=== PATIENT | female | born 1970 | race Caucasian/White ===

== ENCOUNTER 2021-02-27 13:28 | Inpatient (IN) | payer OTHER ==
[2021-02-27 14:30] LABS: ALT 54 U/L (4-34); AST 132 U/L (14-36); African American GFR (CKD) >90 (>60 ml/min/1.73 sqM); Albumin 3.3 g/dL (3.5-5.0); Alkaline Phosphatase 117 U/L (38-126); Amylase 34 U/L (30-110); Anion Gap 8 mmol/L; Anisocytosis Slight; Basophils % (A) 1 %; Blood Urea Nitrogen 13 mg/dL (7-17); Calcium 8.8 mg/dL (8.4-10.2); Carbon Dioxide 32 mmol/L (22-30); Chloride 89 mmol/L (98-107); Eosinophils # (A) 0.2 k/uL (0-0.7); Eosinophils % (A) 3 %; Glucose 110 mg/dL (74-99); HCT 34.6 % (34.0-46.0); HGB 11.1 gm/dL (11.4-16.0); Lipase 70 U/L (23-300); Lymphocytes # (A) 1.2 k/uL (1.0-4.8); Lymphocytes % (A) 21 %; MCH 35.1 pg (25.0-35.0); MCHC 32.1 g/dL (31.0-37.0); Macrocytosis Marked; Mean Platelet Volume 8.2; Monocytes # (A) 0.5 k/uL (0-1.0); Monocytes % (A) 8 %; Neutrophils # (A) 3.8 k/uL (1.3-7.7); Neutrophils % (A) 66 %; Non-African American GFR(CKD) >90 (>60 ml/min/1.73 sqM); Platelet Count 117 k/uL (150-450); RBC 3.17 m/uL (3.80-5.40); RDW 18.3 % (11.5-15.5); Sodium 129 mmol/L (137-145); Total Bilirubin 7.8 mg/dL (0.2-1.3); WBC 5.7 k/uL (3.8-10.6)
[2021-02-27 15:22] LABS: Polychromasia Present; Target Cells Present
[2021-02-27] MEDS ORDERED: SODIUM CHLORIDE 0.9% 500 ML 500 ML IV STA (15:23)
--- NOTE | 2021-02-27 15:23 | ED ---
General Adult HPI - General Source: patient, RN notes reviewed Mode of arrival: ambulatory Limitations: no limitations - History of Present Illness -: days(s) (7) Location: abdomen Radiation: non-radiation Severity scale (1-10): 0 Associated Symptoms: loss of appetite, malaise, other (insomnia. constipation) Treatments Prior to Arrival: none <Claude Jones - Last Filed: 02/27/21 20:17> <Travis Guaman - Last Filed: 02/27/21 20:32> - General Chief complaint: Abdominal Pain Stated complaint: ABD pain Time Seen by Provider: 02/27/21 14:22 - History of Present Illness Initial comments: 50-year-old white female presents to the emergency room with complaints of constipation for one week, decreased appetite, fatigue and insomnia. Has been feeling full quickly after eating over the past 2 weeks. Also states has been unable to sleep at night only getting 4 hours, states mind is racing but doesn't know why. States has been feeling fatigued for the past 2 weeks also. Received her first covid vaccine last Saturday. Patient has lower leg 2+ pitting edema, states has had that since her gastric bypass in 2004. Patient also has a history of cholecystectomy in 2011. Patient states does not have a primary care doctor. Pt is a 1 pack per day smoker. Does not take any medication on a daily basis. Lives with her brother. No sick contacts. (Claude Jones) - Related Data Home Medications Medication Instructions Recorded Confirmed No Known Home Medications 02/27/21 02/27/21 Allergies Allergy/AdvReac Type Severity Reaction Status Date / Time No Known Allergies Allergy Verified 02/27/21 17:20 Review of Systems ROS Other: All systems not noted in ROS Statement are negative. <Claude Jones - Last Filed: 02/27/21 20:17> ROS Other: All systems not noted in ROS Statement are negative. <Travis Guaman - Last Filed: 02/27/21 20:32> ROS Statement: Those systems with pertinent positive or pertinent negative responses have been documented in the HPI. Past Medical History Past Medical History: Liver Disease History of Any Multi-Drug Resistant Organisms: None Reported Past Surgical History: Cholecystectomy, Hernia Repair Additional Past Surgical History / Comment(s): breast aug. Past Psychological History: No Psychological Hx Reported Smoking Status: Current every day smoker Past Alcohol Use History: Daily Past Drug Use History: None Reported <Claude Jones - Last Filed: 02/27/21 20:17> General Exam Limitations: no limitations General appearance: alert, in no apparent distress Head exam: Present: atraumatic, normocephalic, normal inspection Eye exam: Present: PERRL, EOMI, scleral icterus. Absent: conjunctival injection, periorbital swelling, periorbital tenderness Pupils: Present: normal accommodation ENT exam: Present: mucous membranes dry, other (black dry exudates to soft palate and oropharynx) Neck exam: Present: normal inspection, full ROM. Absent: tenderness, meningismus, lymphadenopathy, thyromegaly Respiratory exam: Present: normal lung sounds bilaterally. Absent: respiratory distress, wheezes, rales, rhonchi, stridor, chest wall tenderness Cardiovascular Exam: Present: regular rate, normal rhythm, normal heart sounds. Absent: systolic murmur, diastolic murmur, rubs, gallop, clicks GI/Abdominal exam: Present: soft, normal bowel sounds. Absent: distended, tenderness, guarding, rebound, rigid, mass, pulsatile mass Extremities exam: Present: full ROM, normal capillary refill, pedal edema (3+ pitting left lower extremity, 1+ right lower extremity). Absent: tenderness, calf tenderness Back exam: Present: normal inspection, full ROM. Absent: CVA tenderness (R), CVA tenderness (L) Neurological exam: Present: alert, oriented X3 Psychiatric exam: Present: normal affect, normal mood Skin exam: Present: warm, dry, intact, normal color. Absent: rash <Claude Jones - Last Filed: 02/27/21 20:17> Course Vital Signs 02/27/21 02/27/21 13:31 19:32 Temperature 97.6 F Pulse Rate 94 94 Respiratory 17 18 Rate Blood Pressure 118/71 120/70 O2 Sat by Pulse 99 95 Oximetry EKG Findings - EKG Results: EKG: sinus rhythm (Ventricular rate of 86, HI interval 0.18, QRS of 0.10, QTC of 0.533) <Claude Jones - Last Filed: 02/27/21 20:17> Medical Decision Making - Lab Data Result diagrams: 02/27/21 14:12 02/27/21 14:12 <Claude Jones - Last Filed: 02/27/21 20:17> - Lab Data Result diagrams: 02/27/21 14:12 02/27/21 14:12 <Travis Guaman - Last Filed: 02/27/21 20:32> - Medical Decision Making Hemoglobin and hematocrit is 11.1 / 34.6 respectively, WBC count is 5.7, potassium 3.0 which will be replaced with 40 of K-Dur po. total bili 7.8, AST 132, PLT 54. Sodium level of 129 patient given 1 L bolus with maintenance of 80 ml's an hour. Normal saline Chest x-ray shows no obstruction and no free air but a moderate amount of stool consistent with constipation. CT shows abdominal ascites consistent with hepatitis but no definitive liver mass there is some evidence of mild large bowel ileus. Patient will be admitted to Dr. Hess with GI consult. Case discussed with Dr. Guaman who is agreeable to this plan. (Claude Jones) The patient was seen and examined. All diagnostics were reviewed. It appears as though she does have hepatic failure. She also has significant fatigue and ascites. She states that she has not been able to eat much as well. She has a long history of alcohol abuse. She states that she normally drinks approximately 1 pint of alcohol per day but stopped approximately 3 weeks ago. She presents with scleral icterus. It appears as though her bilirubin is significantly elevated at 7.9. There are no old labs for comparison. The computed tomography scan of the abdomen and pelvis does show significant ascites as well as some increased attenuation of the liver potentially consistent with hepatitis. It is felt as though she would benefit from admission to the hospital for further treatment and GI consultation. Case is discussed with Dr. Darnell and he is agreeable with admission. (Travis Guaman) - Lab Data Lab Results 02/27/21 02/27/21 02/27/21 Range/Units 14:12 14:12 14:12 WBC 5.7 (3.8-10.6) k/uL RBC 3.17 L (3.80-5.40) m/uL Hgb 11.1 L (11.4-16.0) gm/dL Hct 34.6 (34.0-46.0) % MCV 109.0 H (80.0-100.0) fL MCH 35.1 H (25.0-35.0) pg MCHC 32.1 (31.0-37.0) g/dL RDW 18.3 H (11.5-15.5) % Plt Count 117 L (150-450) k/uL MPV 8.2 Neutrophils % 66 % Lymphocytes % 21 % Monocytes % 8 % Eosinophils % 3 % Basophils % 1 % Neutrophils # 3.8 (1.3-7.7) k/uL Lymphocytes # 1.2 (1.0-4.8) k/uL Monocytes # 0.5 (0-1.0) k/uL Eosinophils # 0.2 (0-0.7) k/uL Basophils # 0.0 (0-0.2) k/uL Manual Slide Review Performed Polychromasia Present Anisocytosis Slight Macrocytosis Marked A Target Cells Present PT 14.0 H (9.0-12.0) sec INR 1.4 H (<1.2) APTT 27.4 (22.0-30.0) sec Sodium 129 L (137-145) mmol/L Potassium 3.0 L (3.5-5.1) mmol/L Chloride 89 L (98-107) mmol/L Carbon Dioxide 32 H (22-30) mmol/L Anion Gap 8 mmol/L BUN 13 (7-17) mg/dL Creatinine 0.41 L (0.52-1.04) mg/dL Est GFR (CKD-EPI)AfAm >90 (>60 ml/min/1.73 sqM) Est GFR (CKD-EPI)NonAf >90 (>60 ml/min/1.73 sqM) Glucose 110 H (74-99) mg/dL Plasma Lactic Acid Tom (0.7-2.0) mmol/L Calcium 8.8 (8.4-10.2) mg/dL Total Bilirubin 7.8 H (0.2-1.3) mg/dL Conjugated Bilirubin 0.6 H (0.0-0.3) mg/dL Unconjugated Bilirubin 3.1 H (0.0-1.1) mg/dL Delta Bilirubin 4.1 H (0.0-0.2) mg/dL AST 132 H (14-36) U/L ALT 54 H (4-34) U/L Alkaline Phosphatase 117 (38-126) U/L Total Protein 8.0 (6.3-8.2) g/dL Albumin 3.3 L (3.5-5.0) g/dL Amylase 34 (30-110) U/L Lipase 70 (23-300) U/L 02/27/21 Range/Units 14:12 WBC (3.8-10.6) k/uL RBC (3.80-5.40) m/uL Hgb (11.4-16.0) gm/dL Hct (34.0-46.0) % MCV (80.0-100.0) fL MCH (25.0-35.0) pg MCHC (31.0-37.0) g/dL RDW (11.5-15.5) % Plt Count (150-450) k/uL MPV Neutrophils % % Lymphocytes % % Monocytes % % Eosinophils % % Basophils % % Neutrophils # (1.3-7.7) k/uL Lymphocytes # (1.0-4.8) k/uL Monocytes # (0-1.0) k/uL Eosinophils # (0-0.7) k/uL Basophils # (0-0.2) k/uL Manual Slide Review Polychromasia Anisocytosis Macrocytosis Target Cells PT (9.0-12.0) sec INR (<1.2) APTT (22.0-30.0) sec Sodium (137-145) mmol/L Potassium (3.5-5.1) mmol/L Chloride (98-107) mmol/L Carbon Dioxide (22-30) mmol/L Anion Gap mmol/L BUN (7-17) mg/dL Creatinine (0.52-1.04) mg/dL Est GFR (CKD-EPI)AfAm (>60 ml/min/1.73 sqM) Est GFR (CKD-EPI)NonAf (>60 ml/min/1.73 sqM) Glucose (74-99) mg/dL Plasma Lactic Acid Tom 1.2 (0.7-2.0) mmol/L Calcium (8.4-10.2) mg/dL Total Bilirubin (0.2-1.3) mg/dL Conjugated Bilirubin (0.0-0.3) mg/dL Unconjugated Bilirubin (0.0-1.1) mg/dL Delta Bilirubin (0.0-0.2) mg/dL AST (14-36) U/L ALT (4-34) U/L Alkaline Phosphatase (38-126) U/L Total Protein (6.3-8.2) g/dL Albumin (3.5-5.0) g/dL Amylase (30-110) U/L Lipase (23-300) U/L Disposition Is patient prescribed a controlled substance at d/c from ED?: No Decision Date: 02/27/21 Decision Time: 20:13 <Claude Jones - Last Filed: 02/27/21 20:17> <Travis Guaman - Last Filed: 02/27/21 20:32> Clinical Impression: Hepatitis, Ascites, Anemia, Hepatic failure, Fatigue, Hypokalemia, Abdominal pain Disposition: ADMITTED IP TO THIS HOSP Condition: Fair Referrals: None,Stated [Primary Care Provider] - 1-2 days
[2021-02-27 16:15] LABS: INR 1.4 (<1.2); Partial Thromboplastin Time 27.4 sec (22.0-30.0)
--- NOTE | 2021-02-27 16:33 | XR ---
EXAMINATION TYPE: XR KUB DATE OF EXAM: 02/27/2021 Comparison: None Clinical History: 50-year-old female abdominal pain Findings: Lung bases are clear. No evidence for free intraperitoneal air. Moderate stool burden. Nonobstructive bowel gas pattern. No suspicious calcifications are identified. Air and stool extends throughout the colon distally to the rectum. Impression: No evidence for free air or bowel obstruction. Moderate stool burden may reflect constipation.
[2021-02-27] MEDS ORDERED: POTASSIUM CHLORIDE ER 20 MEQ TAB.ER PO STA (16:50)
[2021-02-27] MEDS ORDERED: MAGNESIUM CITRATE 296 ML BOTTLE PO ONE (17:16)
[2021-02-27 17:31] LABS: Bilirubin, Conjugated 0.6 mg/dL (0.0-0.3); Bilirubin, Delta 4.1 mg/dL (0.0-0.2); Bilirubin,Unconjugated 3.1 mg/dL (0.0-1.1)
[2021-02-27] MEDS: SODIUM CHLORIDE 0.9% 1,000 ML IV SCH (17:48)
--- NOTE | 2021-02-27 19:21 | CT ---
EXAMINATION TYPE: CT abdomen pelvis w con DATE OF EXAM: 02/27/2021 COMPARISON: None HISTORY: Constipation, abdominal pain, elevated LFT, jaundice. CT DLP: 1311 mGycm Automated exposure control for dose reduction was used. CONTRAST: Performed with IV Contrast, patient injected with 100 mL of Isovue 300. Images obtained from the diaphragm to the floor the pelvis with IV contrast. Lung bases are clear of consolidation. There is no pleural effusion. Heart size is normal. There is low-density abdominal ascites fluid. There is hypodensity in the liver consistent with some fatty infiltration. I see no definite discrete liver mass. Spleen is intact. There is no pancreatic m ass. There is surgical clips at the gastric fundus. There is absent gallbladder. There is no adrenal mass. Kidneys show satisfactory contrast opacification. There is no hydronephrosi s. Ureters are not dilated. Uterus is anteverted. Urinary bladder not well evaluated. There is no delmar dence of a pelvic mass. Lumbar vertebra have normal alignment. There is T12 loss of height of 25% pro bably due to osteoporosis. This appears chronic. The bony pelvis is intact. The hip joints appear int act. There is previous surgery of the small bowel in the left mid abdomen. I do not see a definite bowel o bstruction. There is some fluid levels of May the descending colon and could relate to some mild ileu s. There is fecal material and fluid in the rectum. IMPRESSION: Abdominal ascites. Heterogeneity in the liver consistent with hepatitis. No definite liver mass. Ther e is evidence for some mild large bowel ileus.
[2021-02-27] MEDS ORDERED: NALOXONE 0.4 MG/ML 1 ML VIAL IV PRN (20:14)
[2021-02-27] MEDS ORDERED: SODIUM CHLORIDE 0.9% 1,000 ML IV SCH (20:15)
[2021-02-27] MEDS: ZOLPIDEM 5 MG TAB PO SCH (23:13)
[2021-02-27] MEDS: THIAMINE 100 MG/ML 2 ML VIAL IVP SCH (23:54)
[2021-02-28 07:29] LABS: Anisocytosis Slight; Basophils # (A) 0.1 k/uL (0-0.2); Basophils % (A) 1 %; Eosinophils # (A) 0.2 k/uL (0-0.7); Eosinophils % (A) 4 %; HCT 28.8 % (34.0-46.0); Lymphocytes # (A) 1.4 k/uL (1.0-4.8); Lymphocytes % (A) 22 %; MCH 36.6 pg (25.0-35.0); MCHC 34.8 g/dL (31.0-37.0); MCV 105.2 fL (80.0-100.0); Macrocytosis Marked; Mean Platelet Volume 8.2; Monocytes # (A) 0.5 k/uL (0-1.0); Monocytes % (A) 8 %; Neutrophils # (A) 4.1 k/uL (1.3-7.7); Platelet Count 103 k/uL (150-450); RBC 2.74 m/uL (3.80-5.40); RDW 17.6 % (11.5-15.5); WBC 6.4 k/uL (3.8-10.6)
[2021-02-28] MEDS: PANTOPRAZOLE 40 MG/10 ML VIAL IVP SCH (08:14)
[2021-02-28] MEDS: HEPARIN SODIUM,PORCINE/PF 5,000 UNIT/0.5 ML SYRINGE SQ SCH ×2 (08:18→22:03)
[2021-02-28] MEDS: THIAMINE 100 MG/ML 2 ML VIAL IVP SCH (08:19)
[2021-02-28] MEDS: SODIUM CHLORIDE 0.9% 1,000 ML IV SCH ×2 (08:20→20:11)
--- NOTE | 2021-02-28 09:57 | US ---
EXAMINATION TYPE: US abdomen limited DATE OF EXAM: 02/28/2021 COMPARISON: CT 02/27/2021 CLINICAL HISTORY: 50-year-old female assess for fluid pocket please. Technique: All four quadrants were scanned. FINDINGS: There is small amount of free fluid in all four quadrants. IMPRESSION: Only mild abdominal ascites throughout the abdomen. Not enough for therapeutic paracentesis.
[2021-02-28] MEDS: LACTULOSE 20 GM/30 ML CUP PO SCH ×3 (09:58→22:03)
[2021-02-28 10:14] LABS: ALT 51 U/L (4-34); AST 133 U/L (14-36); African American GFR (CKD) >90 (>60 ml/min/1.73 sqM); Albumin 2.9 g/dL (3.5-5.0); Albumin/Globulin Ratio 0.7; Alkaline Phosphatase 94 U/L (38-126); Anion Gap 7 mmol/L; Blood Urea Nitrogen 12 mg/dL (7-17); Carbon Dioxide 28 mmol/L (22-30); Chloride 95 mmol/L (98-107); Globulin 4.3 g/dL; Glucose 90 mg/dL (74-99); Non-African American GFR(CKD) >90 (>60 ml/min/1.73 sqM); Potassium 3.4 mmol/L (3.5-5.1); Sodium 130 mmol/L (137-145); Total Protein 7.2 g/dL (6.3-8.2)
[2021-02-28 13:32] LABS: Basophils # (M) 0.06 k/uL (0-0.2); Eosinophils # (M) 0.13 k/uL (0-0.7); Lymphocytes # (M) 0.51 k/uL (1.0-4.8); Monocytes # (M) 0.26 k/uL (0-1.0); Neutrophils # (M) 5.44 k/uL (1.3-7.7); Neutrophils % (M) 85 %; Nucleated Red Blood Cells 0 /100 WBC (0-0); Total Cells Counted 100
[2021-02-28 13:33] LABS: Poikilocytosis (M) Present; Polychromasia Present; Target Cells Present
[2021-02-28 14:23] LABS: African American GFR (CKD) 138.8 (60.0-200.0); Albumin 2.9 g/dL (3.80-4.90); Albumin/Globulin Ratio 0.78 (1.60-3.17); Anion Gap 12.4 mmol/L (4.00-12.00); Bilirubin, Conjugated 5.2 mg/dL (0.20-0.40); Bilirubin,Unconjugated 1.8 mg/dL; Calcium 8.2 mg/dL (8.7-10.3); Carbon Dioxide 23.6 mmol/L (21.6-31.8); Globulin 3.7 g/dL (1.6-3.3); Magnesium 2.5 mg/dL (1.5-2.4); Non-African American GFR(CKD) 119.8 (60.0-200.0); Potassium 3.3 mmol/L (3.5-5.5); Total Protein 6.6 g/dL (6.2-8.2)
--- NOTE | 2021-02-28 16:40 | CONS ---
CONSULTATION DATE OF DICTATION: February 28, 2021. REASON FOR CONSULTATION: Altered mental status and elevated LFTs. HISTORY OF PRESENT ILLNESS: The patient is a 50-year-old pleasant white female with history of heavy alcohol use, admitted to the emergency room with abdominal discomfort, decreased appetite, not feeling well for the last 2 weeks duration. In the ER she was noted to have jaundice and elevated LFTs and hence we are consulted in regards to this issue. The patient is quite sleepy during the entire interview. She, however, stated that she has been drinking heavily for several years and she quit drinking about 3 weeks ago. She started having some abdominal distention, mostly in the epigastric area associated with some nausea, vomiting, and was not feeling well. In the ER she was noted to have a bilirubin that was 7.8 with AST and ALT at 132 and 54 respectively and normal alkaline phosphatase. Coronavirus PCR was negative. She had a CT of the abdomen and pelvis done in the emergency room that showed mild amount of abdominal ascites and heterogeneity in the liver consistent with hepatitis. PAST MEDICAL HISTORY: Significant for alcohol abuse. MEDICATIONS: Medications at home are none. ALLERGIES: No known drug allergies. SOCIAL HISTORY: Chronic smoker. Heavy alcohol abuse, quit drinking about 3 weeks ago. FAMILY HISTORY: Unremarkable. PAST SURGICAL HISTORY: Cholecystectomy and hernia repair. REVIEW OF SYSTEMS: CARDIOPULMONARY: No chest pain or shortness of breath. GENITOURINARY: No dysuria or hematuria. MUSCULOSKELETAL: Unremarkable. SKIN: Unremarkable. ENDOCRINE: Unremarkable. PSYCHIATRIC: Unremarkable. NEUROLOGY: Slightly confused and more lethargic. ENT/VISION: Unremarkable. CONSTITUTIONAL: She denies any weight loss. No fever, chills, night sweats. PHYSICAL EXAMINATION: She appears comfortable. Vital signs are stable. Blood pressure is 108/65, pulse 85, temperature 97.8. HEENT EXAMINATION: Unremarkable. Conjunctivae pink. Sclerae deeply icteric. Oral cavity, no lesions. NECK: No JVD or lymph node enlargement. CHEST: Was clear to auscultation. HEART: Regular rate and rhythm. ABDOMEN: Soft. There was mild tenderness in the right upper quadrant area. Liver and spleen were not palpable. Shifting dullness not present. EXTREMITIES: 2+ pedal edema on the left side. NEUROLOGIC: Alert, oriented to name and place, but not to time. LABS: Labs from yesterday WBC 5.7, hemoglobin 11.1, MCV 109, platelets 117. INR 1.4. BUN is 13, creatinine 0.41. T bilirubin 7.8, AST 132, ALT 54, alkaline phosphatase 117. Coronavirus PCR is negative. Serum alcohol less than 10. Today bilirubin is 6, AST 133, ALT 51, alkaline phosphatase is 94. Hemoglobin is 10.8. Ammonia level is 77. IMPRESSION: 1. Altered mental status and elevated ammonia level secondary to hepatic encephalopathy. 2. Elevated LFTs and jaundice all consistent with alcoholic liver disease, possibly superimposed on underlying cirrhosis of the liver. 3. Abdominal pain, abdominal distention. Ultrasound and CT scan showed mild amount of ascites. 4. Macrocytic anemia and thrombocytopenia secondary to underlying chronic liver disease. RECOMMENDATIONS: 1. Start on oral lactulose 30 mL 3 times daily and titrate so that she has 3-4 bowel movements daily. 2. Start on Xifaxan 550 mg twice daily. 3. Monitor ammonia level daily. 4. Abstinence from alcohol. 5. Start her on diuretics with Lasix 40 mg daily and Aldactone 50 mg daily. 6. Once her mentation improves, we can start her on a low-salt diet. 7. Will follow with you closely. 8. Thank you for this consultation. MMODL / IJN: [id number] /
[2021-02-28] MEDS: FUROSEMIDE 40 MG TAB PO SCH (16:52)
[2021-02-28] MEDS: SPIRONOLACTONE 25 MG TAB PO SCH (16:52)
[2021-02-28 17:38] LABS: Appearance,Urine Clear (Clear); Bilirubin,Urine 1+ (Negative); Blood,Urine Negative (Negative); Color,Urine Dark Yellow; Glucose,Urine (UA) Negative (Negative); Ketones,Urine Trace (Negative); Leukocyte Esterase,Urine Negative (Negative); Nitrite,Urine Negative (Negative); Protein,Urine Trace (Negative); Specific Gravity,Urine 1.036 (1.001-1.035)
[2021-02-28 18:05] LABS: Hepatitis A Antibody IgM Non-Reactive (Non-Reactive); Hepatitis B Core IgM Non-Reactive (Non-Reactive); Hepatitis B Surface Antigen Non-Reactive (Non-Reactive); Hepatitis C IgG Antibody Non-Reactive (Non-Reactive)
--- NOTE | 2021-02-28 19:57 | P.HPIM ---
History of Present Illness H&P Date: 02/28/21 Chief Complaint: Abdominal distention Patient is a 50-year-old female with a known history of liver cirrhosis related to EtOH abuse, currently everyday smoker and history of gastric bypass in 2004 and cholecystectomy in 2011 presents to ER with complaints of abdominal disten tion for the past 2 weeks, patient is also complaining of generalized weakness fatigue, insomnia and constipation for the past 1 week. Patient is also having lower extremity swelling bilaterally. Denied any fever or chills. No complaints of chest pain or shortness breath. Patient does have nausea and episodes of vomiting. Patient states that she took her first cold vaccine on 02/22/2021 KUB x-ray showed no evidence of free air or bowel obstruction. Moderate stool burden may reflect constipation. CT of the abdomen pelvis was done which showed abdominal ascites. Heterogeneously in the liver consistent with hepatitis. No definite liver mass. There is evidence of some mild large bowel ileus. Laboratory data showed WBC 6.4, hemoglobin 10.0, MCV 119 and platelets 117, ammonia level 77 INR 1.4, sodium 129 potassium 3.0 chloride 89 bicarb 32 BUN 13 and creatinine 0.41 bilirubin is 7.8, AST 132 ALT 54 albumin 3.3 serum alcohol less than 10 COVID-19 PCR not detected Hepatitis panel is nonreactive Review of Systems Constitutional: Patient denies any fever or chills . + generalized weakness and fatigue. no weight loss. Abdomen: Patient does complain of nausea and no source of vomiting. Abdominal distention and constipation present. No diarrhea.. Cardiovascular: Patient denies any chest pain or short of breath no palpitations. Respiratory: patient denied any cough or sputum production. No shortness of breath Complete review of systems could not be obtained from the patient at this time. Past Medical History Past Medical History: Liver Disease Additional Past Medical History / Comment(s): liver cirrohosis r/t etoh in past History of Any Multi-Drug Resistant Organisms: None Reported Past Surgical History: Cholecystectomy, Hernia Repair Additional Past Surgical History / Comment(s): breast aug., gastric bypass Past Anesthesia/Blood Transfusion Reactions: No Reported Reaction Past Psychological History: No Psychological Hx Reported Smoking Status: Current every day smoker Past Alcohol Use History: Daily Past Drug Use History: None Reported Medications and Allergies Home Medications Medication Instructions Recorded Confirmed Type No Known Home Medications 02/27/21 02/27/21 History Allergies Allergy/AdvReac Type Severity Reaction Status Date / Time No Known Allergies Allergy Verified 02/27/21 17:20 Physical Exam Vitals: Vital Signs Temp Pulse Pulse Resp BP BP Pulse Ox 02/28/21 05:00 98.6 F 103 H 16 108/61 90 L 02/27/21 22:51 97.4 F L 87 14 134/79 98 02/27/21 21:00 84 16 114/62 95 02/27/21 20:00 93 16 114/67 95 02/27/21 19:32 94 18 120/70 95 02/27/21 13:31 97.6 F 94 17 118/71 99 Intake and Output 02/27/21 02/28/21 02/28/21 22:59 06:59 14:59 Intake Total 740 Balance 740 Intake: Intake, IV Titration 640 Amount Sodium Chloride 0.9% 1, 640 000 ml @ 80 mls/hr IV . [id number] [facility] Rx#:[id number] Oral 100 Other: Voiding Method Toilet # Voids 1 # Bowel Movements 1 1 Weight 82 kg PHYSICAL EXAMINATION: Patient is lying in the bed comfortably, no acute distress, awake alert and oriented. lethargic and drowsy. HEENT: Normocephalic. Neck is supple. Pupils reactive. Nostrils clear. Oral cavity is moist. Ears reveal no drainage. Neck reveals no JVD, carotid bruits, or thyromegaly. CHEST EXAMINATION: Trachea is central. Symmetrical expansion. Lung vides clear to auscultation and percussion. CARDIAC: Normal S1, S2 with no gallops. No murmurs ABDOMEN: Soft. distended, no gurading, Bowel sounds present , No organomegaly. No abdominal bruits. Extremities: 2+ pedal edema. No clubbing or cyanosis Neurologically awake, alert, oriented x3 with well-coordinated movements. No focal deficits noted Skin: No rash or skin lesions. Psychiatric: Coperative. Musculoskeletal: No joint swelling or deformity. Normal range of motion. Results CBC & Chem 7: 02/28/21 05:55 02/28/21 08:49 Labs: Abnormal Lab Results - Last 24 Hours (Table) 02/27/21 02/27/21 02/27/21 Range/Units 14:12 14:12 14:12 RBC 3.17 L (3.80-5.40) m/uL Hgb 11.1 L (11.4-16.0) gm/dL Hct (34.0-46.0) % MCV 109.0 H (80.0-100.0) fL MCH 35.1 H (25.0-35.0) pg RDW 18.3 H (11.5-15.5) % Plt Count 117 L (150-450) k/uL Macrocytosis Marked A PT 14.0 H (9.0-12.0) sec INR 1.4 H (<1.2) Sodium 129 L (137-145) mmol/L Potassium 3.0 L (3.5-5.1) mmol/L Chloride 89 L (98-107) mmol/L Carbon Dioxide 32 H (22-30) mmol/L Creatinine 0.41 L (0.52-1.04) mg/dL Glucose 110 H (74-99) mg/dL Total Bilirubin 7.8 H (0.2-1.3) mg/dL Conjugated Bilirubin 0.6 H (0.0-0.3) mg/dL Unconjugated Bilirubin 3.1 H (0.0-1.1) mg/dL Delta Bilirubin 4.1 H (0.0-0.2) mg/dL AST 132 H (14-36) U/L ALT 54 H (4-34) U/L Ammonia (<30) umol/L Albumin 3.3 L (3.5-5.0) g/dL 02/28/21 02/28/21 Range/Units 05:55 08:49 RBC 2.74 L (3.80-5.40) m/uL Hgb 10.0 L (11.4-16.0) gm/dL Hct 28.8 L (34.0-46.0) % MCV 105.2 H (80.0-100.0) fL MCH 36.6 H (25.0-35.0) pg RDW 17.6 H (11.5-15.5) % Plt Count 103 L (150-450) k/uL Macrocytosis Marked A PT (9.0-12.0) sec INR (<1.2) Sodium (137-145) mmol/L Potassium (3.5-5.1) mmol/L Chloride (98-107) mmol/L Carbon Dioxide (22-30) mmol/L Creatinine (0.52-1.04) mg/dL Glucose (74-99) mg/dL Total Bilirubin (0.2-1.3) mg/dL Conjugated Bilirubin (0.0-0.3) mg/dL Unconjugated Bilirubin (0.0-1.1) mg/dL Delta Bilirubin (0.0-0.2) mg/dL AST (14-36) U/L ALT (4-34) U/L Ammonia 77 H (<30) umol/L Albumin (3.5-5.0) g/dL Thrombosis Risk Factor Assmnt - DVT/VTE Prophylaxis DVT/VTE Prophylaxis: Pharmacologic Prophylaxis ordered - Choose All That Apply Any of the Below Risk Factors Present?: Yes Each Factor Represents 1 point: Age 41-60 years, Obesity (BMI >25), or Other Risk Factors: No Other congenital or acquired thrombophilia - If yes, enter type in comment: No Thrombosis Risk Factor Assessment Total Risk Factor Score: 3 Thrombosis Risk Factor Assessment Level: Moderate Risk Assessment and Plan Assessment: Altered mental status secondary to hepatic encephalopathy with ammonia level 77 Elevated liver enzymes AST greater than ALT consistent with alcoholic hepatitis and fatty infiltration of the liver Possible underlying liver cirrhosis Mild ascites as per ultrasound of the abdomen Constipation with mild large bowel ileus Macrocytosis, thrombocytopenia and coagulopathy due to liver disease Hyperbilirubinemia History of alcohol abuse Hypokalemia Hypervolemic hyponatremia DVT prophylaxis with heparin subcu Plan: Patient will be continued on lactulose and was given gentle IV hydration. Patient was started on rifaximin and Lasix, spironolactone. Patient was given mag citrate while in the ER and did have a bowel movement. Replace electrolytes and follow-up ammonia level. GI is on board and further recommendations based on the clinical course. Prognosis guarded at this time. Time with Patient: Greater than 30
[2021-02-28] MEDS: RIFAXIMIN 550 MG TABLET PO SCH (22:03)
[2021-03-01] MEDS: ZOLPIDEM 5 MG TAB PO SCH ×2 (01:06→20:46)
[2021-03-01 07:22] LABS: Anisocytosis Slight; Basophils # (A) 0.1 k/uL (0-0.2); Basophils % (A) 1 %; Eosinophils # (A) 0.3 k/uL (0-0.7); Eosinophils % (A) 5 %; HCT 32.3 % (34.0-46.0); HGB 10.5 gm/dL (11.4-16.0); Lymphocytes # (A) 1.6 k/uL (1.0-4.8); Lymphocytes % (A) 26 %; MCH 35.5 pg (25.0-35.0); MCHC 32.5 g/dL (31.0-37.0); MCV 109.1 fL (80.0-100.0); Macrocytosis Marked; Mean Platelet Volume 8.3; Monocytes # (A) 0.5 k/uL (0-1.0); Monocytes % (A) 8 %; Neutrophils # (A) 3.4 k/uL (1.3-7.7); Neutrophils % (A) 58 %; Platelet Count 110 k/uL (150-450); RBC 2.96 m/uL (3.80-5.40); RDW 18.2 % (11.5-15.5); WBC 5.9 k/uL (3.8-10.6)
[2021-03-01] MEDS: SODIUM CHLORIDE 0.9% 1,000 ML IV SCH (08:44)
[2021-03-01] MEDS: FUROSEMIDE 40 MG TAB PO SCH (08:45)
[2021-03-01] MEDS: HEPARIN SODIUM,PORCINE/PF 5,000 UNIT/0.5 ML SYRINGE SQ SCH ×2 (08:45→20:46)
[2021-03-01] MEDS: LACTULOSE 20 GM/30 ML CUP PO SCH ×2 (08:46→20:45)
[2021-03-01] MEDS: RIFAXIMIN 550 MG TABLET PO SCH ×2 (08:46→20:46)
[2021-03-01] MEDS: PANTOPRAZOLE 40 MG/10 ML VIAL IVP SCH (08:46)
[2021-03-01] MEDS: SPIRONOLACTONE 25 MG TAB PO SCH (08:46)
[2021-03-01] MEDS: THIAMINE 100 MG/ML 2 ML VIAL IVP SCH (08:46)
[2021-03-01 12:56] LABS: Albumin 2.9 g/dL (3.80-4.90); Albumin/Globulin Ratio 0.76 (1.60-3.17); Anion Gap 8.1 mmol/L (4.00-12.00); Calcium 8.2 mg/dL (8.7-10.3); Carbon Dioxide 27.9 mmol/L (21.6-31.8); Globulin 3.8 g/dL (1.6-3.3); Non-African American GFR(CKD) 111.3 (60.0-200.0); Potassium 2.8 mmol/L (3.5-5.5); Total Bilirubin 6.2 mg/dL (0.3-1.2); Total Protein 6.7 g/dL (6.2-8.2)
--- NOTE | 2021-03-01 14:31 | P.PN ---
Subjective Progress Note Date: 03/01/21 Principal diagnosis: Altered mental status changes, elevated LFTs This is a 50-year-old white female with a history of heavy alcohol abuse who is admitted to the emergency room with abdominal discomfort, decreased appetite, not feeling well for last 2 weeks duration. While in the emergency room was noted to be severely jaundiced with elevated LFTs. Today the patient is more alert and is able to answer a few more questions. She states she has been a heavy drinker for likely greater than 20 years. She states she stopped drinking 3 weeks ago. She states she was told in the past that she has had liver disease from her drinking. She is aware she is in the hospital, the year, and states that she lives with her brother. She states her abdominal discomfort has improved today, she denies any nausea, or vomiting. Objective - Vital Signs Vital signs: Vital Signs Temp 97.9 F 03/01/21 11:15 Pulse 87 03/01/21 11:15 Resp 14 03/01/21 11:15 BP 124/75 03/01/21 11:15 Pulse Ox 96 03/01/21 11:15 Intake & Output 02/28/21 03/01/21 03/01/21 18:59 06:59 18:59 Intake Total 960 960 Output Total 340 Balance 620 960 Intake: Intake, IV Titration 960 960 Amount Sodium Chloride 0.9% 1, 960 960 000 ml @ 80 mls/hr IV . [id number] [facility] Rx#:[id number] Output: Urine 340 Straight 340 Other: Voiding Method Toilet Bedpan Bedpan # Voids 3 1 # Bowel Movements 1 5 - Exam General appearance: The patient is alert, oriented, appears in no acute distress. HET: Head is normocephalic and atraumatic. Conjunctiva pink. Sclera anicteric. Neck: Supple without lymphadenopathy. Abdomen: Soft, nontender, nondistended with bowel sounds. No guarding or rigidity. Extremities: Normal skin color and turgor. No pedal edema Skin: No rashes, no jaundice Neurological: No focal deficits. Alert and oriented 3. - Labs CBC & Chem 7: 03/01/21 06:31 03/01/21 06:31 Labs: Abnormal Lab Results - Last 24 Hours (Table) 02/28/21 02/28/21 03/01/21 Range/Units 05:55 17:23 06:31 RBC 2.96 L (3.80-5.40) m/uL Hgb 10.5 L (11.4-16.0) gm/dL Hct 32.3 L (34.0-46.0) % MCV 109.1 H (80.0-100.0) fL MCH 35.5 H (25.0-35.0) pg RDW 18.2 H (11.5-15.5) % Plt Count 110 L (150-450) k/uL Macrocytosis Marked A Sodium 131 L (135-145) mmol/L Potassium 3.3 L (3.5-5.5) mmol/L Chloride 95 L (96-109) mmol/L Anion Gap 12.40 H (4.00-12.00) mmol/L BUN (9.0-27.0) mg/dL Creatinine 0.4 L (0.6-1.5) mg/dL BUN/Creatinine Ratio 30.00 H (12.00-20.00) Ratio Glucose 123 H (70-110) mg/dL Calcium 8.2 L (8.7-10.3) mg/dL Magnesium 2.5 H (1.5-2.4) mg/dL Total Bilirubin 7.0 H (0.3-1.2) mg/dL Conjugated Bilirubin 5.20 H (0.20-0.40) mg/dL AST 120 H (13-35) U/L ALT 50 H (8-44) U/L Albumin 2.90 L (3.80-4.90) g/dL Globulin 3.7 H (1.6-3.3) g/dL Albumin/Globulin Ratio 0.78 L (1.60-3.17) g/dL Ur Specific Energy 1.036 H (1.001-1.035) Urine Protein Trace H (Negative) Urine Ketones Trace H (Negative) Urine Bilirubin 1+ H (Negative) 03/01/21 Range/Units 06:31 RBC (3.80-5.40) m/uL Hgb (11.4-16.0) gm/dL Hct (34.0-46.0) % MCV (80.0-100.0) fL MCH (25.0-35.0) pg RDW (11.5-15.5) % Plt Count (150-450) k/uL Macrocytosis Sodium 134 L (135-145) mmol/L Potassium 2.8 L (3.5-5.5) mmol/L Chloride (96-109) mmol/L Anion Gap (4.00-12.00) mmol/L BUN 8.0 L (9.0-27.0) mg/dL Creatinine 0.5 L (0.6-1.5) mg/dL BUN/Creatinine Ratio (12.00-20.00) Ratio Glucose (70-110) mg/dL Calcium 8.2 L (8.7-10.3) mg/dL Magnesium (1.5-2.4) mg/dL Total Bilirubin 6.2 H (0.3-1.2) mg/dL Conjugated Bilirubin (0.20-0.40) mg/dL AST 110 H (13-35) U/L ALT 49 H (8-44) U/L Albumin 2.90 L (3.80-4.90) g/dL Globulin 3.8 H (1.6-3.3) g/dL Albumin/Globulin Ratio 0.76 L (1.60-3.17) g/dL Ur Specific Energy (1.001-1.035) Urine Protein (Negative) Urine Ketones (Negative) Urine Bilirubin (Negative) Assessment and Plan (1) Hepatic encephalopathy Narrative/Plan: Patient with altered mental status and elevated ammonia level secondary to hepatic encephalopathy Current Visit: Yes Status: Acute Code(s): K72.90 - HEPATIC FAILURE, UNSPECIFIED WITHOUT COMA SNOMED Code(s): 15651295 (2) Jaundice Narrative/Plan: With elevated LFTs and jaundice CONSISTENT WITH ALCOHOLIC LIVER DISEASE, POSSIBLY SUPERIMPOSED ON UNDERLYING CIRRHOSIS OF THE LIVER Current Visit: Yes Status: Acute Code(s): R17 - UNSPECIFIED JAUNDICE SNOMED Code(s): 41898619 (3) Elevated liver function tests Current Visit: Yes Status: Acute Code(s): R79.89 - OTHER SPECIFIED ABNORMAL FINDINGS OF BLOOD CHEMISTRY SNOMED Code(s): 002134613 (4) Abdominal pain Narrative/Plan: Abdominal pain and distention. Ultrasound and computed tomography scan showed mild amount of ascites. Also has moderate amount of stool burden. Current Visit: Yes Status: Acute Code(s): R10.9 - UNSPECIFIED ABDOMINAL PAIN SNOMED Code(s): 92865721 (5) Macrocytic anemia Narrative/Plan: Extracystic anemia and thrombocytopenia secondary to underlying chronic liver disease Current Visit: Yes Status: Acute Code(s): D53.9 - NUTRITIONAL ANEMIA, UNSPECIFIED SNOMED Code(s): 51880120 Plan: 1. Continue oral lactulose 30 g 3 times daily titrate to have 3-4 bowel movements daily 2. Continue Xifaxan 550 mg twice daily 3. Monitor ammonia level daily 4. Alcohol abstinence 5. Continue diuretics with Lasix 40 mg daily and Aldactone 50 mg daily Thank you for this consultation, we will follow with you closely Dr. Seferino Win I agree with the dictator's note, documented as a scribe by Venus Reed.
[2021-03-01] MEDS ORDERED: Potassium Replacement Protocol 1 EACH MISC MISCELLANE PRN (15:59)
--- NOTE | 2021-03-01 16:10 | P.PN ---
Subjective Progress Note Date: 03/01/21 Chief Complaint: Abdominal distention Patient is a 50-year-old female with a known history of liver cirrhosis related to EtOH abuse, currently everyday smoker and history of gastric bypass in 2004 and cholecystectomy in 2011 presents to ER with complaints of abdominal distention for the past 2 weeks, patient is also complaining of generalized weakness fatigue, insomnia and constipation for the past 1 week. Patient is also having lower extremity swelling bilaterally. Denied any fever or chills. No complaints of chest pain or shortness breath. Patient does have nausea and episodes of vomiting. Patient states that she took her first covid vaccine on 02/22/2021 [facility] x-ray showed no evidence of free air or bowel obstruction. Moderate stool burden may reflect constipation. CT of the abdomen pelvis was done which showed abdominal ascites. Heterogeneously in the liver consistent with hepatitis. No definite liver mass. There is evidence of some mild large bowel ileus. Laboratory data showed WBC 6.4, hemoglobin 10.0, MCV 119 and platelets 117, ammonia level 77 INR 1.4, sodium 129 potassium 3.0 chloride 89 bicarb 32 BUN 13 and creatinine 0.41 bilirubin is 7.8, AST 132 ALT 54 albumin 3.3 serum alcohol less than 10 COVID-19 PCR not detected Hepatitis panel is nonreactive 03/01/2021 Patient is seen and evaluated and follow-up continues to be lethargic although arousable. Patient's ammonia level is 6.7 today and liver functions trending down. Sodium is 134 and potassium is 2.8 and will replace per protocol. Other labs within normal limits. GI is following and patient is maintained on Lasix and Aldactone and will continue. Abdominal discomfort slightly improved today although intermittently causing discomfort. Patient to continue with lactulose 30 g twice daily and continue to monitor for at least 3 bowel movements daily. Will have PT/OT evaluate the patient as she continues to be weak and lethargic. Reports of chest pain or shortness of breath noted. Patient is afebrile. No Reports of nausea or vomiting noted. Objective - Vital Signs Vital signs: Vital Signs Temp 98.2 F 03/01/21 15:00 Pulse 85 03/01/21 15:00 Resp 16 03/01/21 15:00 BP 117/69 03/01/21 15:00 Pulse Ox 96 03/01/21 15:00 Intake & Output 02/28/21 03/01/21 03/01/21 18:59 06:59 18:59 Intake Total 960 960 Output Total 340 Balance 620 960 Intake: Intake, IV Titration 960 960 Amount Sodium Chloride 0.9% 1, 960 960 000 ml @ 80 mls/hr IV . [id number] [facility] Rx#:[id number] Output: Urine 340 Straight 340 Other: Voiding Method Toilet Bedpan Bedpan # Voids 3 1 # Bowel Movements 1 5 - Exam Patient is lying in the bed comfortably, no acute distress, awake alert and orie nted. lethargic and drowsy. HEENT: Normocephalic. Neck is supple. Pupils reactive. Nostrils clear. Oral cavity is moist. Ears reveal no drainage. Neck reveals no JVD, carotid bruits, or thyromegaly. CHEST EXAMINATION: Trachea is central. Symmetrical expansion. Lung vides clear to auscultation and percussion. CARDIAC: Normal S1, S2 with no gallops. No murmurs ABDOMEN: Soft. distended, no guarding, Bowel sounds present , No organomegaly. No abdominal bruits. Extremities: 2+ pedal edema. No clubbing or cyanosis Neurologically lethargic although arousable, alert, oriented x3 with well-coor dinated movements. No focal deficits noted Skin: No rash or skin lesions. Psychiatric: Cooperative. Musculoskeletal: No joint swelling or deformity. Normal range of motion. - Labs CBC & Chem 7: 03/01/21 06:31 03/01/21 06:31 Labs: Abnormal Lab Results - Last 24 Hours (Table) 02/28/21 03/01/21 03/01/21 Range/Units 17:23 06:31 06:31 RBC 2.96 L (3.80-5.40) m/uL Hgb 10.5 L (11.4-16.0) gm/dL Hct 32.3 L (34.0-46.0) % MCV 109.1 H (80.0-100.0) fL MCH 35.5 H (25.0-35.0) pg RDW 18.2 H (11.5-15.5) % Plt Count 110 L (150-450) k/uL Macrocytosis Marked A Sodium 134 L (135-145) mmol/L Potassium 2.8 L (3.5-5.5) mmol/L BUN 8.0 L (9.0-27.0) mg/dL Creatinine 0.5 L (0.6-1.5) mg/dL Calcium 8.2 L (8.7-10.3) mg/dL Total Bilirubin 6.2 H (0.3-1.2) mg/dL AST 110 H (13-35) U/L ALT 49 H (8-44) U/L Albumin 2.90 L (3.80-4.90) g/dL Globulin 3.8 H (1.6-3.3) g/dL Albumin/Globulin Ratio 0.76 L (1.60-3.17) g/dL Ur Specific [place] 1.036 H (1.001-1.035) Urine Protein Trace H (Negative) Urine Ketones Trace H (Negative) Urine Bilirubin 1+ H (Negative) Assessment and Plan Assessment: Altered mental status secondary to hepatic encephalopathy with ammonia level 77 Elevated liver enzymes AST greater than ALT consistent with alcoholic hepatitis and fatty infiltration of the liver Possible underlying liver cirrhosis Mild ascites as per ultrasound of the abdomen Constipation with mild large bowel ileus Macrocytosis, thrombocytopenia and coagulopathy due to liver disease Hyperbilirubinemia History of alcohol abuse Hypokalemia Hypervolemic hyponatremia DVT prophylaxis with heparin subcu Plan: Patient will be continued on lactulose and was given gentle IV hydration. Will repeat a.m. labs and decrease IV fluids. Patient to continue on rifaximin and Lasix, spironolactone. Potassium today is 2.8 and will Replace electrolytes and follow-up. GI is on board and further recommendations based on the clinical course. Prognosis guarded at this time. Will have PT/OT therapy evaluate the patient as she continues to be lethargic and weak.
[2021-03-01] MEDS: POTASSIUM CHLORIDE 10 MEQ in WATER FOR INJECTION 1 100ML.BAG IVPB SCH ×6 (16:36→23:12)
[2021-03-02] MEDS: SODIUM CHLORIDE 0.9% 1,000 ML IV SCH ×2 (04:48→11:56)
[2021-03-02 06:56] LABS: ALT 43 U/L (4-34); AST 96 U/L (14-36); African American GFR (CKD) >90 (>60 ml/min/1.73 sqM); Albumin/Globulin Ratio 0.7; Alkaline Phosphatase 96 U/L (38-126); Anion Gap 7 mmol/L; Blood Urea Nitrogen 7 mg/dL (7-17); Calcium 8.3 mg/dL (8.4-10.2); Carbon Dioxide 28 mmol/L (22-30); Chloride 96 mmol/L (98-107); Globulin 4.3 g/dL; Glucose 92 mg/dL (74-99); Non-African American GFR(CKD) >90 (>60 ml/min/1.73 sqM); Potassium 3.3 mmol/L (3.5-5.1); Sodium 131 mmol/L (137-145); Total Bilirubin 5.6 mg/dL (0.2-1.3); Total Protein 7.3 g/dL (6.3-8.2)
[2021-03-02] MEDS: PANTOPRAZOLE 40 MG/10 ML VIAL IVP SCH (08:12)
[2021-03-02] MEDS: POTASSIUM CHLORIDE 10 MEQ in WATER FOR INJECTION 1 100ML.BAG IVPB SCH ×4 (08:16→11:53)
[2021-03-02 09:41] VITALS: TEMP 98.3
[2021-03-02] MEDS: HEPARIN SODIUM,PORCINE/PF 5,000 UNIT/0.5 ML SYRINGE SQ SCH (10:21)
[2021-03-02] MEDS: SPIRONOLACTONE 25 MG TAB PO SCH (10:22)
[2021-03-02] MEDS: FUROSEMIDE 40 MG TAB PO SCH (10:22)
[2021-03-02] MEDS: RIFAXIMIN 550 MG TABLET PO SCH (10:22)
[2021-03-02] MEDS: LACTULOSE 20 GM/30 ML CUP PO SCH (10:23)
[2021-03-02] MEDS: THIAMINE 100 MG/ML 2 ML VIAL IVP SCH (10:45)
[2021-03-02 12:42] VITALS: BP 119/71; PULSE 91; RESP 16
--- NOTE | 2021-03-02 15:04 | P.DS ---
Providers Date of admission: 02/27/21 20:33 Expected date of discharge: 03/02/21 Attending physician: Ange Hess Consults: 02/27/21 20:14 Consult Physician Stat Consulting Provider: Josefina Win Consult Reason/Comments: ascites, hepatitis Do you want consulting provider notified?: Yes Primary care physician: Stated None Hospital Course: Final diagnosis Altered mental status secondary to hepatic encephalopathy with ammonia level 77 Elevated liver enzymes AST greater than ALT consistent with alcoholic hepatitis and fatty infiltration of the liver Possible underlying liver cirrhosis Mild ascites as per ultrasound of the abdomen Constipation with mild large bowel ileus Macrocytosis, thrombocytopenia and coagulopathy due to liver disease Hyperbilirubinemia History of alcohol abuse Hypokalemia Hypervolemic hyponatremia DVT prophylaxis Discharge disposition Patient is being discharged in a stable condition with guarded prognosis to home. Patient will follow-up with primary care provider in the outpatient setting upon discharge. Patient also to follow-up with RADHA Szymanski [facility] as discussed and scheduled. Patient will continue on daily Protonix and spironolactone Lasix and Xifaxan along with lactulose upon discharge. Total time taken is greater than 35 minutes. Hospital course Chief Complaint: Abdominal distention Patient is a 50-year-old female with a known history of liver cirrhosis related to EtOH abuse, currently everyday smoker and history of gastric bypass in 2004 and cholecystectomy in 2011 presents to ER with complaints of abdominal distention for the past 2 weeks, patient is also complaining of generalized weakness fatigue, insomnia and constipation for the past 1 week. Patient is also having lower extremity swelling bilaterally. Denied any fever or chills. No complaints of chest pain or shortness breath. Patient does have nausea and episodes of vomiting. Patient states that she took her first covid vaccine on 02/22/2021 [facility] x-ray showed no evidence of free air or bowel obstruction. Moderate stool burden may reflect constipation. CT of the abdomen pelvis was done which showed abdominal ascites. Heterogeneously in the liver consistent with hepatitis. No definite liver mass. There is evidence of some mild large bowel ileus. Laboratory data showed WBC 6.4, hemoglobin 10.0, MCV 119 and platelets 117, ammonia level 77 INR 1.4, sodium 129 potassium 3.0 chloride 89 bicarb 32 BUN 13 and creatinine 0.41 bilirubin is 7.8, AST 132 ALT 54 albumin 3.3 serum alcohol less than 10 COVID-19 PCR not detected Hepatitis panel is nonreactive 03/01/2021 Patient is seen and evaluated and follow-up continues to be lethargic although arousable. Patient's ammonia level is 6.7 today and liver functions trending down. Sodium is 134 and potassium is 2.8 and will replace per protocol. Other labs within normal limits. GI is following and patient is maintained on Lasix and Aldactone and will continue. Abdominal discomfort slightly improved today although intermittently causing discomfort. Patient to continue with lactulose 30 g twice daily and continue to monitor for at least 3 bowel movements daily. Will have PT/OT evaluate the patient as she continues to be weak and lethargic. Reports of chest pain or shortness of breath noted. Patient is afebrile. No Reports of nausea or vomiting noted. 03/02/2021 Patient is seen and evaluated in follow-up this morning no acute overnight issues. Patient is alert and awake oriented 3. Potassium is currently 3.3 and replaced and provided repeat labs to monitor electrolytes in a few days. Discussed with the patient about establishing with primary care provider and also following up with GI in one week as scheduled. Instructed the patient to avoid all alcohol intake. Patient states she feels well is tolerating diet and is anticipating going home. Patient will continue on lactulose twice daily and hold for more than 3 loose stools along with Aldactone and Lasix and Protonix, and Xifaxan and will be following up with GI in the outpatient setting. Patient was seen and evaluated by PT with no issues and is independent in walking. She states she lives with her brother and will be returning home on discharge. Currently no reports of chest pain, shortness of breath, or palpitations. Patient is afebrile. No reports of nausea or vomiting and patient is tolerating diet. Patient will be discharged home today. Guarded prognosis On exam vital signs are stable. Temp is 98.3F, pulse is 91, respirations are 16, blood pressure is 119/71, oxygen saturation is 98% on room air. Cardio S1, S2 are muffled. Respiratory system shows diminished breath sounds at the bases with no wheezing or rhonchi noted. Abdomen is soft and nontender. Nervous system shows no focal deficits. Please refer to medication reconciliation sheet for a list of medications. Patient Condition at Discharge: Fair Plan - Discharge Summary Discharge Rx Participant: No New Discharge Prescriptions: New Spironolactone [Aldactone] 50 mg PO DAILY 30 Days #30 tab Lactulose [Cephulac] 30 gm PO BID #360 ml Furosemide [Lasix] 40 mg PO DAILY 30 Days #30 tab Pantoprazole Sodium [Protonix] 40 mg PO DAILY #30 tablet. Rifaximin [Xifaxan] 550 mg PO BID 30 Days #60 tablet Discharge Medication List Furosemide [Lasix] 40 mg PO DAILY 30 Days #30 tab 03/02/21 [Rx] Lactulose [Cephulac] 30 gm PO BID #360 ml 03/02/21 [Rx] Pantoprazole Sodium [Protonix] 40 mg PO DAILY #30 tablet. 03/02/21 [Rx] Rifaximin [Xifaxan] 550 mg PO BID 30 Days #60 tablet 03/02/21 [Rx] Spironolactone [Aldactone] 50 mg PO DAILY 30 Days #30 tab 03/02/21 [Rx] Follow up Appointment(s)/Referral(s): Maura Szymanski NPC [Nurse Practitioner] - 03/09/21 10:15 am (Appointment time is at 10:30 but please arrive at 10:15.) Ambulatory/Diagnostic Orders: Basic Metabolic Panel [LAB.AMB] Time Frame: 3 Days, Location: None Selected Patient Instructions/Handouts: Spironolactone (By mouth), Furosemide (By mouth), Lactulose (By mouth), Pantoprazole (By mouth), Rifaximin (By mouth), Acute Liver Failure (DC), Hepatic Encephalopathy (DC), Ascites (DC), Jaundice (DC), Alcoholic Hepatitis (DC) Activity/Diet/Wound Care/Special Instructions: Activity Limited until follow-up Follow-up with primary care provider at [facility]--patient has appointment already set-up Follow up with GI in the outpatient setting Repeat labs in 2-3 days to monitor electrolytes (see prescription) continue with medications prescribed Avoid alcohol intake Discharge Disposition: HOME SELF-CARE
--- NOTE | 2021-03-02 15:49 | P.PN ---
Subjective Progress Note Date: 03/02/21 (Late entry, patient seen 11:00) Principal diagnosis: Altered mental status changes, elevated LFTs This is a 50-year-old white female with a history of heavy alcohol abuse who is admitted to the emergency room with abdominal discomfort, decreased appetite, not feeling well for last 2 weeks duration. While in the emergency room was noted to be severely jaundiced with elevated LFTs. Today the patient is more alert and is able to answer a few more questions. She states she has been a heavy drinker for likely greater than 20 years. Bell is seen and examined sitting up in the bedside chair. She is more awake, alert, and oriented. She denies any abdominal pain, nausea, or vomiting. Plan is for discharge home. Thus with patient importance of alcohol cessation, follow-up with gastroenterology for liver disease. Objective - Vital Signs Vital signs: Vital Signs Temp 98.3 F 03/02/21 12:40 Pulse 91 03/02/21 12:42 Resp 16 03/02/21 12:42 BP 119/71 03/02/21 12:40 Pulse Ox 98 03/02/21 04:59 Intake & Output 03/01/21 03/02/21 03/02/21 18:59 06:59 18:59 Intake Total 1160 Balance 1160 Intake: Intake, IV Titration 1160 Amount Potassium Chloride 10 meq 200 In Water For Injection 1 100ml.bag @ 100 mls/hr IVPB Q1HR [facility] Rx#: [id number] Sodium Chloride 0.9% 1, 960 000 ml @ 80 mls/hr IV . [id number] [facility] Rx#:[id number] Other: Voiding Method Bedpan Bedpan # Voids 1 2 # Emes[place] 0 - Exam General appearance: The patient is alert, oriented, appears in no acute distress. HET: Head is normocephalic and atraumatic. Conjunctiva pink. Sclera anicteric. Neck: Supple without lymphadenopathy. Abdomen: Soft, nontender, nondistended with bowel sounds. No guarding or rigidity. Extremities: Normal skin color and turgor. No pedal edema Skin: No rashes, no jaundice Neurological: No focal deficits. Alert and oriented 3. - Labs CBC & Chem 7: 03/01/21 06:31 03/02/21 05:59 Labs: Abnormal Lab Results - Last 24 Hours (Table) 03/02/21 Range/Units 05:59 Sodium 131 L (137-145) mmol/L Potassium 3.3 L (3.5-5.1) mmol/L Chloride 96 L (98-107) mmol/L Creatinine 0.46 L (0.52-1.04) mg/dL Calcium 8.3 L (8.4-10.2) mg/dL Total Bilirubin 5.6 H (0.2-1.3) mg/dL AST 96 H (14-36) U/L ALT 43 H (4-34) U/L Albumin 3.0 L (3.5-5.0) g/dL Assessment and Plan (1) Hepatic encephalopathy Narrative/Plan: Patient with altered mental status and elevated ammonia level secondary to hepatic encephalopathy. Patient started on lactulose and Xifaxan. Status: Acute Code(s): K72.90 - HEPATIC FAILURE, UNSPECIFIED WITHOUT COMA SNOMED Code(s): 03543652 (2) Jaundice Narrative/Plan: With elevated LFTs and jaundice CONSISTENT WITH ALCOHOLIC LIVER DISEASE, POSSIBLY SUPERIMPOSED ON UNDERLYING CIRRHOSIS OF THE LIVER Status: Acute Code(s): R17 - UNSPECIFIED JAUNDICE SNOMED Code(s): 83353619 (3) Elevated liver function tests Status: Acute Code(s): R79.89 - OTHER SPECIFIED ABNORMAL FINDINGS OF BLOOD CHEMISTRY SNOMED Code(s): 317259728 (4) Abdominal pain Narrative/Plan: Abdominal pain and distention. Ultrasound and computed tomography scan showed mild amount of ascites. Also has moderate amount of stool burden. Status: Acute Code(s): R10.9 - UNSPECIFIED ABDOMINAL PAIN SNOMED Code(s): 92841963 (5) Macrocytic anemia Narrative/Plan: Extracystic anemia and thrombocytopenia secondary to underlying chronic liver disease Status: Acute Code(s): D53.9 - NUTRITIONAL ANEMIA, UNSPECIFIED SNOMED Code(s): 31097532 Plan: 1. Continue oral lactulose 30 g 3 times daily titrate to have 3-4 bowel movements daily 2. Continue Xifaxan 550 mg twice daily 3. Alcohol abstinence 5. Continue diuretics with Lasix 40 mg daily and Aldactone 50 mg daily Thank you for this consultation, she may be discharged home from a gastroenterology standpoint with close follow-up. Dr. Seferino Win I agree with the dictator's note, documented as a scribe by Venus Reed.
--- NOTE | 2021-03-22 15:44 | CDI ---
Documentation Clarification Form Date: 03/22/2021 01:52:00 AM From: Radha Benoit Admit Date: 02/27/2021 08:33:00 PM Patient Name: Kait Bartholomew Visit Number: [id number] Discharge Date: 03/02/2021 01:45:00 PM ATTENTION: The Clinical Documentation Specialists (CDI) and [facility] Coding Staff appreciate your assistance in clarifying documentation. Please respond to the clarification below the line at the bottom and electronically sign. The CDI & [facility] Coding staff will review the response and follow-up if needed. Please note: Queries are made part of the Legal Health Record. If you have any questions, please contact the author of this message via ITS. Dr. Naveen Carpenter Patient admitted with AMS. In ED, H&P, PN ,consult and DS impression documented as AMS secondary to hepatic encephalopathy. patient also has elevated liver enzymes AST greater than ALT consistent with alcoholic hepatitis and fatty infiltration of the liver, possible underlying liver cirrhosis due to ETOH abuse, mild ascites and history of alcohol abuse. Please clarify if there is a relationship between the hepatic encephalopathy and alcohol abuse. History/Risk Factors: liver cirrhosis & alcoholic hepatitis due to ETOH abuse, AMS due to hepatic encephalopathy. Clinical Indicators: Ammonia-77,9,21. AST-132,120,133,110,96. ALT-54,50,51,49,43. Toal bilirubin-7.8,7.0,6.0,6.2,5.6. Treatment: Lactulose 30gm PO BID, Xifaxan-550mg PO BID. Please clarify the relationship, if any, which is clinically appropriate for this patient: [ ] Hepatic encephalopathy associated with alcohol abuse. [ ] Hepatic encephalopathy not associated with alcohol abuse. [ ] Other explanation of clinical findings (please specify) [ ] Unable to determine (no explanation for clinical findings) Hepatic encephalopathy associated with alcohol abuse. MTDD
== END 2021-03-02 13:45 | disposition home or self-care (01) | DRG 433 ==
LOC: EC 13:28 → 5NMEDONC 20:33
PROVIDERS: ADMIT Internal Medicine; ATTEND Internal Medicine
DX: K70.40 Alcoholic hepatic failure without coma (principal); K56.7 Ileus, unspecified; E87.1 Hypo-osmolality and hyponatremia; D68.4 Acquired coagulation factor deficiency; K70.31 Alcoholic cirrhosis of liver with ascites; K70.0 Alcoholic fatty liver; D75.89 Other specified diseases of blood and blood-forming organs; D69.59 Other secondary thrombocytopenia; F17.200 Nicotine dependence, unspecified, uncomplicated; Z20.822 Contact with and (suspected) exposure to COVID-19; D53.9 Nutritional anemia, unspecified; K70.11 Alcoholic hepatitis with ascites; G47.00 Insomnia, unspecified; E87.70 Fluid overload, unspecified; F10.10 Alcohol abuse, uncomplicated; E87.6 Hypokalemia; Z98.84 Bariatric surgery status; Z90.49 Acquired absence of other specified parts of digestive tract
CPT/HCPCS: 36415; 74018; 74177; 76705; 80048; 80053; 80074; 80076; 80320; 81003; 82140; 82150; 82248; 83605; 83690; 83735; 85025; 85610; 85730; 87635; 93005; 96360; 96361; 99285

== ENCOUNTER → 2021-03-09 | Outpatient (CLI) | payer OTHER ==
--- NOTE | 2021-03-09 12:58 | US ---
EXAMINATION TYPE: US venous doppler duplex LE DATE OF EXAM: 03/09/2021 12:45 PM COMPARISON: NONE CLINICAL HISTORY: R22.42 swelling L lower limb. edema bilateral legs, worse on the left SIDE PERFORMED: bilateral TECHNIQUE: The lower extremity deep venous system is examined utilizing real time linear array sonog usman with graded compression, doppler sonography and color-flow sonography. VESSELS IMAGED: Common Femoral Vein Deep Femoral Vein Greater Saphenous Vein * Femoral Vein Popliteal Vein Small Saphenous Vein * Proximal Calf Veins (* superficial vessels) Right Leg: no evidence of DVT Left Leg: no evidence of DVT. multiple lymph nodes within left groin Grayscale, color doppler, spectral doppler imaging performed of the deep veins of the bilateral lower extremities. There is normal flow, compressibility, vascular waveforms. IMPRESSION: No ultrasound evidence for acute DVT in either lower extremity.
[2021-03-09 13:45] LABS: INR 1.4 (<1.2)
[2021-03-09 13:53] LABS: ALT 32 U/L (4-34); AST 72 U/L (14-36); African American GFR (CKD) >90 (>60 ml/min/1.73 sqM); Albumin 3.5 g/dL (3.5-5.0); Alkaline Phosphatase 101 U/L (38-126); Anion Gap 8 mmol/L; Blood Urea Nitrogen 11 mg/dL (7-17); Calcium 8.9 mg/dL (8.4-10.2); Carbon Dioxide 27 mmol/L (22-30); Chloride 99 mmol/L (98-107); Glucose 102 mg/dL (74-99); Non-African American GFR(CKD) >90 (>60 ml/min/1.73 sqM); Potassium 3.1 mmol/L (3.5-5.1); Sodium 134 mmol/L (137-145); Total Bilirubin 4.7 mg/dL (0.2-1.3); Total Protein 8.3 g/dL (6.3-8.2)
[2021-03-09 14:00] LABS: Anisocytosis Slight; Basophils % (A) 1 %; Eosinophils # (A) 0.1 k/uL (0-0.7); Eosinophils % (A) 3 %; HCT 37.2 % (34.0-46.0); HGB 11.4 gm/dL (11.4-16.0); Hypochromasia Slight; Lymphocytes # (A) 1.1 k/uL (1.0-4.8); Lymphocytes % (A) 29 %; MCH 33.9 pg (25.0-35.0); MCHC 30.7 g/dL (31.0-37.0); MCV 110.4 fL (80.0-100.0); Macrocytosis Marked; Mean Platelet Volume 8.1; Monocytes # (A) 0.3 k/uL (0-1.0); Monocytes % (A) 8 %; Neutrophils # (A) 2.1 k/uL (1.3-7.7); Neutrophils % (A) 56 %; Platelet Count 137 k/uL (150-450); RBC 3.37 m/uL (3.80-5.40); RDW 16.8 % (11.5-15.5); WBC 3.7 k/uL (3.8-10.6)
[2021-03-09 21:54] LABS: Hepatitis A Antibody IgM Non-Reactive (Non-Reactive); Hepatitis B Core IgM Non-Reactive (Non-Reactive); Hepatitis B Surface Antigen Non-Reactive (Non-Reactive); Hepatitis C IgG Antibody Non-Reactive (Non-Reactive)
[2021-03-10 01:29] LABS: % Iron Saturation 14.29 (12.00-45.00); Iron 41 ug/dL (50-170); Total Iron Binding Capacity 287 ug/dL (228-460)
[2021-03-10 09:51] LABS: Ceruloplasmin 20.6 mg/dL (20.0-60.0)
[2021-03-10 12:58] LABS: Liver/Kidney Microsome Antibod 1.2 UNITS (<=20)
[2021-03-12 13:49] LABS: ANA Pattern Speckled
[2021-03-13 11:47] LABS: Albumin 3.31 g/dL (3.80-4.90); Gamma Globulin 2.24 g/dL (0.70-1.50)
== END | disposition home or self-care (01) ==
LOC: RADUSWWP 12:16
PROVIDERS: ATTEND Internal Medicine Gastroenterology
DX: R22.42 Localized swelling, mass and lump, left lower limb (principal); K72.90 Hepatic failure, unspecified without coma; R74.8 Abnormal levels of other serum enzymes
CPT/HCPCS: 80053; 80074; 81596; 82103; 82140; 82390; 82728; 83516; 83540; 83550; 84165; 85025; 85610; 86038; 86039; 86376; 93970

== ENCOUNTER 2021-03-19 20:45 | Emergency (ER) | payer OTHER ==
[2021-03-19 21:03] VITALS: TEMP 97.9
--- NOTE | 2021-03-19 21:45 | ED ---
General Adult HPI - General Chief complaint: Psychiatric Symptoms Stated complaint: ABD pain Time Seen by Provider: 03/19/21 21:11 Source: patient Mode of arrival: ambulatory Limitations: no limitations - History of Present Illness Initial comments: This patient is a 50-year-old woman who presents with a number of complaints. She states that she has been feeling fatigued and apathetic. She is very tired over the time but states she cannot really sleep well. She just wants to lie in bed all the time. This is been going on for between a week and 2, starting after she was diagnosed with hepatitis related to drinking. She states that she had been able to stop drinking for a while but then over the past 2 days has been drinking again because she doesn't really know what else to do. She is also feeling depressed and has had some suicidal ideation. -: days(s) Severity scale (1-10): 0 Improves with: none Worsens with: none Associated Symptoms: loss of appetite, malaise, weakness Treatments Prior to Arrival: none - Related Data Previous Rx's Medication Instructions Recorded Furosemide [Lasix] 40 mg PO DAILY 30 Days #30 tab 03/02/21 Lactulose [Cephulac] 30 gm PO BID #360 ml 03/02/21 Pantoprazole Sodium [Protonix] 40 mg PO DAILY #30 tablet. 03/02/21 Rifaximin [Xifaxan] 550 mg PO BID 30 Days #60 tablet 03/02/21 Spironolactone [Aldactone] 50 mg PO DAILY 30 Days #30 tab 03/02/21 Allergies Allergy/AdvReac Type Severity Reaction Status Date / Time No Known Allergies Allergy Verified 03/19/21 22:20 Review of Systems ROS Statement: Those systems with pertinent positive or pertinent negative responses have been documented in the HPI. ROS Other: All systems not noted in ROS Statement are negative. Constitutional: Reports: weakness, weight change. Denies: fever, chills Eyes: Denies: vision change Respiratory: Denies: cough, dyspnea, hemoptysis Cardiovascular: Reports: edema. Denies: chest pain, palpitations, orthopnea, s yncope Endocrine: Reports: fatigue Gastrointestinal: Denies: abdominal pain, nausea, vomiting, diarrhea, constipation Genitourinary: Denies: dysuria, hematuria Musculoskeletal: Denies: back pain Skin: Denies: rash Neurological: Denies: headache, weakness, numbness, paresthesias Psychiatric: Reports: depression, suicidal thoughts. 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 Absent: scleral icterus, conjunctival injection ENT exam: Present: normal oropharynx Neck exam: Present: normal inspection, full ROM Respiratory exam: Present: normal lung sounds bilaterally. Absent: respiratory distress, wheezes, rales, rhonchi, stridor Cardiovascular Exam: Present: normal rhythm, tachycardia, normal heart sounds. Absent: systolic murmur, diastolic murmur, rubs, gallop GI/Abdominal exam: Present: soft, organomegaly. Absent: distended, tenderness, guarding, rebound, rigid, mass, pulsatile mass, hernia Extremities exam: Present: normal inspection, normal capillary refill, pedal edema (Left greater than right). Absent: calf tenderness Back exam: Present: normal inspection. Absent: CVA tenderness (R), CVA tenderness (L) Neurological exam: Present: alert Skin exam: Present: warm, dry, intact, normal color. Absent: rash Course Vital Signs 03/19/21 03/20/21 20:57 00:47 Temperature 97.9 F Pulse Rate 111 H 96 Respiratory 20 16 Rate Blood Pressure 111/64 125/82 O2 Sat by Pulse 98 97 Oximetry EKG Findings - EKG Results: EKG: interpreted by ETHEL, sinus rhythm, normal axis, normal QRS, normal ST/T - Blocks, [place], Hypertrophy, ST Abn: Repolarization changes or abnormalities: Q-T interval prolongation Medical Decision Making - Lab Data Result diagrams: 03/19/21 21:48 03/19/21 23:23 Lab Results 03/19/21 03/19/21 03/19/21 Range/Units 21:48 21:48 21:48 WBC 5.1 (3.8-10.6) k/uL RBC 3.43 L (3.80-5.40) m/uL Hgb 11.5 (11.4-16.0) gm/dL Hct 36.0 (34.0-46.0) % MCV 104.8 H D (80.0-100.0) fL MCH 33.6 (25.0-35.0) pg MCHC 32.1 (31.0-37.0) g/dL RDW 15.8 H (11.5-15.5) % Plt Count 141 L (150-450) k/uL MPV 8.3 Neutrophils % 49 % Lymphocytes % 39 % Monocytes % 7 % Eosinophils % 2 % Basophils % 1 % Neutrophils # 2.5 (1.3-7.7) k/uL Lymphocytes # 2.0 (1.0-4.8) k/uL Monocytes # 0.3 (0-1.0) k/uL Eosinophils # 0.1 (0-0.7) k/uL Basophils # 0.1 (0-0.2) k/uL Macrocytosis Moderate PT 14.3 H (9.0-12.0) sec INR 1.4 H (<1.2) APTT 28.5 (22.0-30.0) sec Sodium (137-145) mmol/L Potassium (3.5-5.1) mmol/L Chloride (98-107) mmol/L Carbon Dioxide (22-30) mmol/L Anion Gap mmol/L BUN (7-17) mg/dL Creatinine (0.52-1.04) mg/dL Est GFR (CKD-EPI)AfAm (>60 ml/min/1.73 sqM) Est GFR (CKD-EPI)NonAf (>60 ml/min/1.73 sqM) Glucose (74-99) mg/dL Calcium (8.4-10.2) mg/dL Magnesium (1.6-2.3) mg/dL Total Bilirubin (0.2-1.3) mg/dL AST (14-36) U/L ALT (4-34) U/L Alkaline Phosphatase (38-126) U/L Ammonia (<30) umol/L Troponin I <0.012 (0.000-0.034) ng/mL Total Protein (6.3-8.2) g/dL Albumin (3.5-5.0) g/dL TSH (0.465-4.680) mIU/L Free T4 (0.78-2.19) ng/dL 03/19/21 03/19/21 Range/Units 23:23 23:23 WBC (3.8-10.6) k/uL RBC (3.80-5.40) m/uL Hgb (11.4-16.0) gm/dL Hct (34.0-46.0) % MCV (80.0-100.0) fL MCH (25.0-35.0) pg MCHC (31.0-37.0) g/dL RDW (11.5-15.5) % Plt Count (150-450) k/uL MPV Neutrophils % % Lymphocytes % % Monocytes % % Eosinophils % % Basophils % % Neutrophils # (1.3-7.7) k/uL Lymphocytes # (1.0-4.8) k/uL Monocytes # (0-1.0) k/uL Eosinophils # (0-0.7) k/uL Basophils # (0-0.2) k/uL Macrocytosis PT (9.0-12.0) sec INR (<1.2) APTT (22.0-30.0) sec Sodium 140 (137-145) mmol/L Potassium 3.6 (3.5-5.1) mmol/L Chloride 106 (98-107) mmol/L Carbon Dioxide 24 (22-30) mmol/L Anion Gap 10 mmol/L BUN 5 L (7-17) mg/dL Creatinine 0.38 L (0.52-1.04) mg/dL Est GFR (CKD-EPI)AfAm >90 (>60 ml/min/1.73 sqM) Est GFR (CKD-EPI)NonAf >90 (>60 ml/min/1.73 sqM) Glucose 94 (74-99) mg/dL Calcium 8.2 L (8.4-10.2) mg/dL Magnesium 1.6 (1.6-2.3) mg/dL Total Bilirubin 4.2 H (0.2-1.3) mg/dL AST 72 H (14-36) U/L ALT 25 (4-34) U/L Alkaline Phosphatase 95 (38-126) U/L Ammonia 47 H (<30) umol/L Troponin I (0.000-0.034) ng/mL Total Protein 7.4 (6.3-8.2) g/dL Albumin 3.0 L (3.5-5.0) g/dL TSH 5.120 H (0.465-4.680) mIU/L Free T4 1.98 (0.78-2.19) ng/dL Disposition Clinical Impression: Mood disorder, Chronic liver disease Disposition: HOME SELF-CARE Condition: Fair Instructions (If sedation given, give patient instructions): Mood Disorders (ED) Is patient prescribed a controlled substance at d/c from ED?: No Referrals: None,Stated [Primary Care Provider] - 1-2 days Josefina Win MD [STAFF PHYSICIAN] - 1-2 days
[2021-03-19 22:23] LABS: INR 1.4 (<1.2); Partial Thromboplastin Time 28.5 sec (22.0-30.0); Prothrombin Time 14.3 sec (9.0-12.0)
[2021-03-19 22:48] LABS: Basophils # (A) 0.1 k/uL (0-0.2); Basophils % (A) 1 %; Eosinophils # (A) 0.1 k/uL (0-0.7); Eosinophils % (A) 2 %; HGB 11.5 gm/dL (11.4-16.0); Lymphocytes % (A) 39 %; MCH 33.6 pg (25.0-35.0); MCHC 32.1 g/dL (31.0-37.0); Macrocytosis Moderate; Mean Platelet Volume 8.3; Monocytes # (A) 0.3 k/uL (0-1.0); Monocytes % (A) 7 %; Neutrophils # (A) 2.5 k/uL (1.3-7.7); Neutrophils % (A) 49 %; Platelet Count 141 k/uL (150-450); RBC 3.43 m/uL (3.80-5.40); RDW 15.8 % (11.5-15.5); WBC 5.1 k/uL (3.8-10.6)
[2021-03-19 22:50] LABS: MCV 104.8 fL (80.0-100.0)
[2021-03-20 00:15] LABS: ALT 25 U/L (4-34); AST 72 U/L (14-36); African American GFR (CKD) >90 (>60 ml/min/1.73 sqM); Alkaline Phosphatase 95 U/L (38-126); Anion Gap 10 mmol/L; Blood Urea Nitrogen 5 mg/dL (7-17); Calcium 8.2 mg/dL (8.4-10.2); Carbon Dioxide 24 mmol/L (22-30); Chloride 106 mmol/L (98-107); Glucose 94 mg/dL (74-99); Magnesium 1.6 mg/dL (1.6-2.3); Non-African American GFR(CKD) >90 (>60 ml/min/1.73 sqM); Potassium 3.6 mmol/L (3.5-5.1); Sodium 140 mmol/L (137-145); Total Bilirubin 4.2 mg/dL (0.2-1.3); Total Protein 7.4 g/dL (6.3-8.2)
[2021-03-20 00:48] VITALS: RESP 16
[2021-03-20 01:22] LABS: T4, Free (Free Thyroxine) 1.98 ng/dL (0.78-2.19)
[2021-03-20 03:22] VITALS: BP 130/88; PULSE 86
== END 2021-03-20 03:22 | disposition home or self-care (01) ==
LOC: EC 20:45
DX: F39 Unspecified mood [affective] disorder (principal); K76.9 Liver disease, unspecified; F17.200 Nicotine dependence, unspecified, uncomplicated; Z98.84 Bariatric surgery status
CPT/HCPCS: 36415; 80053; 82075; 82140; 83735; 84439; 84443; 84484; 85025; 85610; 85730; 93005; 99285

== ENCOUNTER → 2021-03-21 | Outpatient (CLI) | payer OTHER ==
--- NOTE | 2021-03-21 09:19 | US ---
EXAMINATION TYPE: US liver DATE OF EXAM: 03/21/2021 COMPARISON: 02/28/2021 CLINICAL HISTORY: R18.8 Ascites. EXAM MEASUREMENTS: Liver Length: 18.9 cm Gallbladder Wall: Surgically absent CBD: 0.2 cm Right Kidney: 10.1 x 3.9 x 5.4 cm Extensive midline bowel gas. Technically difficult. Pancreas: Obscured by bowel gas Liver: lobular contour, attenuating Gallbladder: Surgically absent Evidence for sonographic Shelton's sign: no CBD: wnl Right Kidney: Inferior pole obscured by overlying bowel gas, portions visualized wnl Mild ascites. IMPRESSION: 1. Ascites. 2. Hepatomegaly.
== END | disposition home or self-care (01) ==
LOC: RADUSWWP 08:29
PROVIDERS: ATTEND Internal Medicine Gastroenterology
DX: R18.8 Other ascites (principal); R16.0 Hepatomegaly, not elsewhere classified
CPT/HCPCS: 76705

== ENCOUNTER → 2021-04-10 | Outpatient (CLI) | payer OTHER ==
[2021-04-10 19:16] LABS: HCT 33.6 % (37.2-46.3); HGB 10.9 g/dL (12.0-15.0); MCH 32.4 pg (27.0-32.0); MCHC 32.4 g/dL (32.0-37.0); Mean Platelet Volume 10.9 fL (9.5-12.2); Platelet Count 169 X 10*3/uL (140-440); RBC 3.36 X 10*6/uL (4.10-5.20); RDW 14.7 % (11.5-14.5); WBC 3.92 X 10*3/uL (4.50-10.00)
[2021-04-10 19:37] LABS: Albumin 3.1 g/dL (3.80-4.90); Albumin/Globulin Ratio 0.72 (1.60-3.17); Anion Gap 7.4 mmol/L (4.00-12.00); Calcium 8.4 mg/dL (8.7-10.3); Carbon Dioxide 24.6 mmol/L (21.6-31.8); Globulin 4.3 g/dL (1.6-3.3); Non-African American GFR(CKD) 111.3 (60.0-200.0); Potassium 4.4 mmol/L (3.5-5.5); Total Bilirubin 2.5 mg/dL (0.2-1.2); Total Protein 7.4 g/dL (6.2-8.2)
[2021-04-10 19:47] LABS: T4, Free (Free Thyroxine) 1.1 ng/dL (0.80-1.80)
[2021-04-10 19:48] LABS: INR 1.17 (0.90-1.11); Prothrombin Time 12.6 sec (9.9-11.9)
[2021-04-10 22:39] LABS: Basophils # (A) 0.06 X 10*3/uL (0.00-0.10); Basophils % (A) 1.5 %; Eosinophils # (A) 0.09 X 10*3/uL (0.04-0.35); Eosinophils % (A) 2.3 %; Lymphocytes # (A) 1.29 X 10*3/uL (0.90-5.00); Lymphocytes % (A) 32.9 %; Monocytes # (A) 0.52 X 10*3/uL (0.20-1.00); Monocytes % (A) 13.3 %; Neutrophils # (A) 1.95 X 10*3/uL (1.80-7.70); Neutrophils % (A) 49.7 %
== END | disposition home or self-care (01) ==
LOC: LABWHC1 12:18
PROVIDERS: ATTEND Family Medicine
DX: E03.9 Hypothyroidism, unspecified (principal); D61.818 Other pancytopenia; F10.10 Alcohol abuse, uncomplicated; G47.00 Insomnia, unspecified
CPT/HCPCS: 36415; 80053; 82140; 84439; 84443; 84550; 85025; 85610

== ENCOUNTER → 2021-05-16 | Day surgery (SDC) | payer OTHER ==
[~2021-05-16] MED LIST: ALPRAZolam 0.5 MG TAB PO STA; HYDROmorphone 0.5 MG/0.5 ML SYRINGE IVP STA
[2021-05-16 09:54] LABS: Mean Platelet Volume 7.5; Platelet Count 134 k/uL (150-450)
[2021-05-16 10:01] LABS: INR 1.2 (<1.2); Prothrombin Time 12.9 sec (9.0-12.0)
[2021-05-16 10:21] VITALS: RESP 16; TEMP 98
--- NOTE | 2021-05-16 11:03 | CT ---
EXAMINATION TYPE: CT discontinued procedure DATE OF EXAM: 05/16/2021 COMPARISON: I HISTORY: prevfious abnormal findings CT DLP: 670 mGycm Automated exposure control for dose reduction was used. FINDINGS: Preliminary imaging demonstrated evidence of ascites. Referring clinician was contacted and wished to discontinue the procedure. IMPRESSION: DISCONTINUED LIVER BIOPSY
[2021-05-16 11:15] VITALS: BP 121/72; PULSE 72
== END ==
LOC: RADPROMAIN 09:03
PROVIDERS: ATTEND Internal Medicine Gastroenterology
DX: R89.4 Abnormal immunological findings in specimens from other organs, systems and tissues (principal)
CPT/HCPCS: 85049; 85610; 96374; 36415; 76380; J1170

== ENCOUNTER → 2021-09-25 | Outpatient (CLI) | payer OTHER ==
--- NOTE | 2021-09-25 09:01 | US ---
EXAMINATION TYPE: US liver DATE OF EXAM: 09/25/2021 COMPARISON: 03/21/2021 CLINICAL HISTORY: K74.60 Cirrhosis of the liver unspecified. EXAM MEASUREMENTS: Liver Length: 17.6 cm Gallbladder Wall: Surgically absent CBD: 0.9 cm Right Kidney: 11.2 cm Pancreas: Obscured by bowel gas Liver: Increased attenuation Gallbladder: Surgically absent CBD: wnl Right Kidney: wnl No ascites seen today. IMPRESSION: 1. Postcholecystectomy changes. 2. Nonspecific pattern to the liver can be seen with hepatic steatosis or hepatocellular disease, hep atitis. Correlate clinically.
[2021-09-25 09:35] LABS: Anisocytosis Slight; Basophils % (A) 1 %; Eosinophils # (A) 0.1 k/uL (0-0.7); Eosinophils % (A) 4 %; HCT 35.7 % (34.0-46.0); HGB 11.2 gm/dL (11.4-16.0); Lymphocytes # (A) 0.9 k/uL (1.0-4.8); Lymphocytes % (A) 36 %; MCH 30.4 pg (25.0-35.0); MCHC 31.2 g/dL (31.0-37.0); MCV 97.4 fL (80.0-100.0); Macrocytosis Slight; Mean Platelet Volume 8.6; Monocytes # (A) 0.2 k/uL (0-1.0); Monocytes % (A) 7 %; Neutrophils # (A) 1.2 k/uL (1.3-7.7); Neutrophils % (A) 49 %; Platelet Count 101 k/uL (150-450); RBC 3.67 m/uL (3.80-5.40); RDW 17.5 % (11.5-15.5); WBC 2.4 k/uL (3.8-10.6)
[2021-09-25 10:07] LABS: ALT 15 U/L (4-34); AST 35 U/L (14-36); African American GFR (CKD) >90 (>60 ml/min/1.73 sqM); Albumin 3.8 g/dL (3.5-5.0); Alkaline Phosphatase 75 U/L (38-126); Anion Gap 7 mmol/L; Blood Urea Nitrogen 12 mg/dL (7-17); Calcium 9.4 mg/dL (8.4-10.2); Carbon Dioxide 25 mmol/L (22-30); Chloride 106 mmol/L (98-107); Glucose 104 mg/dL (74-99); Non-African American GFR(CKD) >90 (>60 ml/min/1.73 sqM); Potassium 3.5 mmol/L (3.5-5.1); Sodium 138 mmol/L (137-145); Total Bilirubin 1.1 mg/dL (0.2-1.3); Total Protein 8.1 g/dL (6.3-8.2)
== END | disposition home or self-care (01) ==
LOC: RADUSWWP 08:28
PROVIDERS: ATTEND Internal Medicine Gastroenterology
DX: K74.60 Unspecified cirrhosis of liver (principal); Z90.49 Acquired absence of other specified parts of digestive tract
CPT/HCPCS: 36415; 76705; 80053; 82105; 85025

== ENCOUNTER → 2022-01-10 | Outpatient (CLI) | payer BC ==
--- NOTE | 2022-01-16 11:24 | MM ---
Reason for exam: screening (asymptomatic). Last mammogram was performed 4 years and 4 months ago. History: Pre-pectoral saline implants in both breasts, 2010. Breast lifts of both breasts, 2010. Physical Findings: A clinical breast exam by your physician is recommended on an annual basis and results should be correlated with mammographic findings. MG 3D Screen Mammo Imp/Cad Bilateral CC, MLO, and ID view(s) were taken. Prior study comparison: September 03, 2017, mammogram, performed at [facility]. More prominent subareolar densities favor ducts. Bilateral subglandular implants redemonstrated. ASSESSMENT: Incomplete: need additional imaging evaluation, BI-RAD 0 RECOMMENDATION: Ultrasound of the right breast. [facility] will attempt to contact patient to return for ultrasound.
== END | disposition home or self-care (01) ==
LOC: RADMAMWWP 13:29
PROVIDERS: ATTEND Family Medicine
DX: Z12.31 Encounter for screening mammogram for malignant neoplasm of breast (principal)
CPT/HCPCS: 77063; 77067

== ENCOUNTER → 2022-01-17 | Outpatient (CLI) | payer BC ==
--- NOTE | 2022-01-17 08:57 | USB ---
Reason for exam: additional evaluation requested from abnormal screening. History: Pre-pectoral saline implants in both breasts, 2010. Breast lifts of both breasts, 2010. Physical Findings: A clinical breast exam by your physician is recommended on an annual basis and results should be correlated with mammographic findings. US Breast Workup Limited RT Right limited breast ultrasound including focal area of concern, retroareolar and axilla demonstrates no cystic or solid lesion seen. These results were verbally communicated with the patient and result sheet given to the patient on 01/17/22. ASSESSMENT: Negative, BI-RAD 1 RECOMMENDATION: Return to routine screening mammogram schedule for both breasts.
== END | disposition home or self-care (01) ==
LOC: RADUSWWP 08:22
PROVIDERS: ATTEND Family Medicine
DX: R92.8 Other abnormal and inconclusive findings on diagnostic imaging of breast (principal); Z98.82 Breast implant status

== ENCOUNTER 2023-01-30 15:16 | Emergency (ER) | payer BC ==
[2023-01-30] MEDS ORDERED: levETIRAcetam IV 1,000 MG in SALINE 1 100ML.BAG IVPB STA (16:25)
--- NOTE | 2023-01-30 16:35 | ED ---
General Adult HPI - General Chief complaint: Seizure Stated complaint: Seizure Time Seen by Provider: 01/30/23 15:47 Source: patient, EMS, RN notes reviewed Mode of arrival: EMS Limitations: no limitations - History of Present Illness Initial comments: Patient is a pleasant 52-year-old female presenting to the emergency department with concern with falling asleep at work. Patient reportedly had seizure activity however patient is not aware of this. Patient does admit to discontinuing alcohol less than 2 weeks ago however is unclear exactly what day it was. Patient admits to feeling a little bit confused when she woke up from her "nap". Patient denies history of previous seizure. Patient states she feels fine at this point and has no concerns. Patient denies any injury or trauma. Patient does have some bleeding from her mouth. Patient states this was from dental procedure yesterday. - Related Data Home Medications Medication Instructions Recorded Confirmed No Known Home Medications 01/30/23 01/30/23 Allergies Allergy/AdvReac Type Severity Reaction Status Date / Time No Known Allergies Allergy Verified 01/30/23 16:13 Review of Systems ROS Statement: Those systems with pertinent positive or pertinent negative responses have been documented in the HPI. ROS Other: All systems not noted in ROS Statement are negative. Constitutional: Denies: fever Eyes: Denies: eye pain ENT: Denies: ear pain Respiratory: Denies: cough Cardiovascular: Denies: chest pain Endocrine: Denies: fatigue Gastrointestinal: Denies: abdominal pain Genitourinary: Denies: dysuria Musculoskeletal: Denies: back pain Skin: Denies: rash Neurological: Reports: as per HPI. 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 History of Any Multi-Drug Resistant Organisms: None Reported Past Surgical History: Cholecystectomy, Hernia Repair Additional Past Surgical History / Comment(s): breast aug., gastric bypass Past Anesthesia/Blood Transfusion Reactions: No Reported Reaction Past Psychological History: No Psychological Hx Reported Smoking Status: Current every day smoker Past Alcohol Use History: Daily, Rare Past Drug Use History: None Reported General Exam Limitations: no limitations General appearance: alert, in no apparent distress Head exam: Present: atraumatic, normocephalic Eye exam: Present: normal appearance, PERRL, EOMI ENT exam: Present: other (Tongue abrasion) Neck exam: Present: normal inspection. Absent: tenderness Respiratory exam: Present: normal lung sounds bilaterally Cardiovascular Exam: Present: regular rate, normal rhythm GI/Abdominal exam: Present: soft. Absent: distended, tenderness Extremities exam: Present: normal inspection Neurological exam: Present: alert, oriented X3, CN II-XII intact. Absent: motor sensory deficit Expanded Neurological exam: Present: protecting the airway Speech: Present: fluid speech Motor strength exam: RUE: 5, LUE: 5, RLE: 5, LLE: 5 Eye Response: (4) open spontaneously Motor Response: (6) obeys commands Verbal Response: (5) oriented Psychiatric exam: Present: normal affect, normal mood Skin exam: Present: normal color Course Vital Signs 01/30/23 01/30/23 01/30/23 15:24 16:02 16:48 Temperature 99.0 F Pulse Rate 100 89 94 Respiratory 16 16 17 Rate Blood Pressure 153/96 141/94 144/98 O2 Sat by Pulse 100 99 98 Oximetry 01/30/23 17:50 Temperature 99.0 F Pulse Rate 82 Respiratory 16 Rate Blood Pressure 139/99 O2 Sat by Pulse 100 Oximetry EKG Findings - EKG Results: EKG: interpreted by ERMD, sinus rhythm, normal axis, normal QRS, normal ST/T Medical Decision Making - Medical Decision Making Was pt. sent in by a medical professional or institution (ED[facility] Munoz, IT ACCOUNT MANAGER, urgent care, hospital, or assisted...) When possible be specific @ -No Did you speak to anyone other than the patient for history (EMS, parent, family, police, friend...)? What history was obtained from this source @ -No Did you review nursing and triage notes (agree or disagree)? Why? @ -I reviewed and agree with nursing and triage notes Were old charts reviewed (outside hosp., previous admission, EMS record, old EKG, old radiological studies, urgent care reports/EKG's, assisted records)? Report findings @ -No old charts were reviewed Differential Diagnosis (chest pain, altered mental status, abdominal pain women, abdominal pain men, vaginal bleeding, weakness, fever, dyspnea, syncope, headache, dizziness, GI bleed, back pain, seizure, CVA, palpatations, mental health)? @ -Differential Seizure: Recurrent seizure disorder, febrile seizure, alcohol withdrawal, stimulants, meningitis, encephalitis, intercranial hemorrhage, intracranial tumor, stroke, eclampsia, thyrotoxicosis, hypocalcemia, hyponatremia, hypernatremia, hypomagnesemia, psychogenic, this is not meant to be an all-inclusive list. EKG interpreted by me (3pts min.). @ -As above X-rays interpreted by me (1pt min.). @ -None done CT interpreted by me (1pt min.). @ -Computed tomography scan of the brain without large hemorrhage or mass U/S interpreted by me (1pt. min.). @ -None done What testing was considered but not performed or refused? (CT, X-rays, U/S, l abs)? Why? @ -None What meds were considered but not given or refused? Why? @ -None Did you discuss the management of the patient with other professionals (professionals i.e. , PA, IT ACCOUNT MANAGER, lab, RT, psych nurse, nursing home social worker, intellectual property lawyer, teacher, accounts officer, rehabilitation case coordinator)? Give summary @ -No Was smoking cessation discussed for >3mins.? @ -No Was critical care preformed (if so, how long)? @ -No Were there social determinants of health that impacted care today? How? (Homelessness, low income, unemployed, alcoholism, drug addiction, transportation, low edu. Level, literacy, decrease access to med. care, long term, rehab)? @ -No Was there de-escalation of care discussed even if they declined (Discuss DNR or withdrawal of care, Hospice)? DNR status @ -No What co-morbidities impacted this encounter? (DM, HTN, Smoking, COPD, CAD, Cance r, CVA, ARF, Chemo, Hep., AIDS, mental health diagnosis, sleep apnea, morbid obesity)? @ -History of alcohol Was patient admitted / discharged? Hospital course, mention meds given and route, prescriptions, significant lab abnormalities, going to OR and other per tinent info. @ -Patient reevaluated and resting comfortably in bed. Patient symptom-free without complaints. Patient updated on results and need for discontinuation of alcohol Undiagnosed new problem with uncertain prognosis? @ -No Drug Therapy requiring intensive monitoring for toxicity (Heparin, Nitro, Insulin, Cardizem)? @ -No Were any procedures done? @ -No Diagnosis/symptom? @ -Seizure Acute, or Chronic, or Acute on Chronic? @ -Acute Uncomplicated (without systemic symptoms) or Complicated (systemic symptoms)? @ -default Side effects of treatment? @ -No Exacerbation, Progression, or Severe Exacerbation? @ -No Poses a threat to life or bodily function? How? (Chest pain, [place], [place], pneumonia, PE, COPD, DKA, ARF, appy, cholecystitis, CVA, Diverticulitis, Homicidal, Suicidal, threat to staff... and all critical care pts) @ -No - Lab Data Result diagrams: 01/30/23 16:38 01/30/23 16:38 Lab Results 01/30/23 01/30/23 01/30/23 Range/Units 16:38 16:38 16:38 WBC 3.4 L (3.8-10.6) k/uL RBC 3.57 L (3.80-5.40) m/uL Hgb 11.1 L (11.4-16.0) gm/dL Hct 35.7 (34.0-46.0) % MCV 99.8 (80.0-100.0) fL MCH 31.1 (25.0-35.0) pg MCHC 31.2 (31.0-37.0) g/dL RDW 17.1 H (11.5-15.5) % Plt Count 55 L (150-450) k/uL MPV 9.9 Neutrophils % 63 % Lymphocytes % 24 % Monocytes % 6 % Eosinophils % 3 % Basophils % 1 % Neutrophils # 2.2 (1.3-7.7) k/uL Lymphocytes # 0.8 L (1.0-4.8) k/uL Monocytes # 0.2 (0-1.0) k/uL Eosinophils # 0.1 (0-0.7) k/uL Basophils # 0.0 (0-0.2) k/uL Manual Slide Review Performed Anisocytosis Slight Macrocytosis Slight Sodium 136 L (137-145) mmol/L Potassium 3.7 (3.5-5.1) mmol/L Chloride 101 (98-107) mmol/L Carbon Dioxide 25 (22-30) mmol/L Anion Gap 10 mmol/L BUN 13 (7-17) mg/dL Creatinine 0.48 L (0.52-1.04) mg/dL Est GFR (CKD-EPI)AfAm >90 (>60 ml/min/1.73 sqM) Est GFR (CKD-EPI)NonAf >90 (>60 ml/min/1.73 sqM) Glucose 105 H (74-99) mg/dL POC Glucose (mg/dL) (70-110) mg/dL POC Glu Program Director ID Calcium 8.8 (8.4-10.2) mg/dL Magnesium 1.4 L (1.6-2.3) mg/dL Total Bilirubin 1.7 H (0.2-1.3) mg/dL AST 78 H (14-36) U/L ALT 28 (4-34) U/L Alkaline Phosphatase 130 H (38-126) U/L Total Protein 8.6 H (6.3-8.2) g/dL Albumin 4.2 (3.5-5.0) g/dL Urine Color Colorless Urine Appearance Clear (Clear) Urine pH 5.5 (5.0-8.0) Ur Specific [place] 1.006 (1.001-1.035) Urine Protein Negative (Negative) Urine Glucose (UA) Negative (Negative) Urine Ketones Negative (Negative) Urine Blood Negative (Negative) Urine Nitrite Negative (Negative) Urine Bilirubin Negative (Negative) Urine Urobilinogen <2.0 (<2.0) mg/dL Ur Leukocyte Esterase Negative (Negative) Urine RBC (0-5) /hpf Urine WBC (0-5) /hpf Ur Squamous Epith Cells (0-4) /hpf Calcium Oxalate Crystal (None) /hpf Urine Bacteria (None) /hpf Hyaline Casts (0-2) /lpf Urine Mucus (None) /hpf Urine Opiates Screen Not Detected (NotDetected) Ur Oxycodone Screen Not Detected (NotDetected) Urine Methadone Screen Not Detected (NotDetected) Ur Propoxyphene Screen Not Detected (NotDetected) Ur Barbiturates Screen Not Detected (NotDetected) U Tricyclic Antidepress Not Detected (NotDetected) Ur Phencyclidine Scrn Not Detected (NotDetected) Ur Amphetamines Screen Not Detected (NotDetected) U Methamphetamines Scrn Not Detected (NotDetected) U Benzodiazepines Scrn Not Detected (NotDetected) Urine Cocaine Screen Not Detected (NotDetected) U Marijuana (THC) Screen Not Detected (NotDetected) Serum Alcohol <10 mg/dL 01/30/23 01/30/23 Range/Units 16:44 17:26 WBC (3.8-10.6) k/uL RBC (3.80-5.40) m/uL Hgb (11.4-16.0) gm/dL Hct (34.0-46.0) % MCV (80.0-100.0) fL MCH (25.0-35.0) pg MCHC (31.0-37.0) g/dL RDW (11.5-15.5) % Plt Count (150-450) k/uL MPV Neutrophils % % Lymphocytes % % Monocytes % % Eosinophils % % Basophils % % Neutrophils # (1.3-7.7) k/uL Lymphocytes # (1.0-4.8) k/uL Monocytes # (0-1.0) k/uL Eosinophils # (0-0.7) k/uL Basophils # (0-0.2) k/uL Manual Slide Review Anisocytosis Macrocytosis Sodium (137-145) mmol/L Potassium (3.5-5.1) mmol/L Chloride (98-107) mmol/L Carbon Dioxide (22-30) mmol/L Anion Gap mmol/L BUN (7-17) mg/dL Creatinine (0.52-1.04) mg/dL Est GFR (CKD-EPI)AfAm (>60 ml/min/1.73 sqM) Est GFR (CKD-EPI)NonAf (>60 ml/min/1.73 sqM) Glucose (74-99) mg/dL POC Glucose (mg/dL) 108 (70-110) mg/dL POC Glu Program Director ID Sienna Gamble Calcium (8.4-10.2) mg/dL Magnesium (1.6-2.3) mg/dL Total Bilirubin (0.2-1.3) mg/dL AST (14-36) U/L ALT (4-34) U/L Alkaline Phosphatase (38-126) U/L Total Protein (6.3-8.2) g/dL Albumin (3.5-5.0) g/dL Urine Color Yellow Urine Appearance Cloudy H (Clear) Urine pH 6.0 (5.0-8.0) Ur Specific [place] 1.014 (1.001-1.035) Urine Protein Trace H (Negative) Urine Glucose (UA) Negative (Negative) Urine Ketones Negative (Negative) Urine Blood Negative (Negative) Urine Nitrite Negative (Negative) Urine Bilirubin Negative (Negative) Urine Urobilinogen 12.0 (<2.0) mg/dL Ur Leukocyte Esterase Moderate H (Negative) Urine RBC 2 (0-5) /hpf Urine WBC 8 H (0-5) /hpf Ur Squamous Epith Cells 1 (0-4) /hpf Calcium Oxalate Crystal Occasional H (None) /hpf Urine Bacteria Many H (None) /hpf Hyaline Casts 5 H (0-2) /lpf Urine Mucus Many H (None) /hpf Urine Opiates Screen (NotDetected) Ur Oxycodone Screen (NotDetected) Urine Methadone Screen (NotDetected) Ur Propoxyphene Screen (NotDetected) Ur Barbiturates Screen (NotDetected) U Tricyclic Antidepress (NotDetected) Ur Phencyclidine Scrn (NotDetected) Ur Amphetamines Screen (NotDetected) U Methamphetamines Scrn (NotDetected) U Benzodiazepines Scrn (NotDetected) Urine Cocaine Screen (NotDetected) U Marijuana (THC) Screen (NotDetected) Serum Alcohol mg/dL Disposition Clinical Impression: New onset seizure Disposition: HOME SELF-CARE Condition: Stable Instructions (If sedation given, give patient instructions): Seizure/Epilepsy Discharge Instructions & Follow-Up, New-Onset Seizure in Adults (ED) Additional Instructions: [facility] requires no driving until 6 months seizure-free. Please do follow-up with your primary care physician in the next day or 2 for recheck. Return for seizures, weakness, worsening or changing symptoms or other concerns. Discontinue alcohol. Is patient prescribed a controlled substance at d/c from ED?: No Referrals: Felix Dent MD [STAFF PHYSICIAN] - 1-2 days Time of Disposition: 19:32
[2023-01-30 16:51] LABS: Anisocytosis Slight; Basophils % (A) 1 %; Eosinophils # (A) 0.1 k/uL (0-0.7); Eosinophils % (A) 3 %; HCT 35.7 % (34.0-46.0); HGB 11.1 gm/dL (11.4-16.0); Lymphocytes # (A) 0.8 k/uL (1.0-4.8); Lymphocytes % (A) 24 %; MCH 31.1 pg (25.0-35.0); MCHC 31.2 g/dL (31.0-37.0); MCV 99.8 fL (80.0-100.0); Macrocytosis Slight; Mean Platelet Volume 9.9; Monocytes # (A) 0.2 k/uL (0-1.0); Monocytes % (A) 6 %; Neutrophils # (A) 2.2 k/uL (1.3-7.7); Neutrophils % (A) 63 %; RBC 3.57 m/uL (3.80-5.40); RDW 17.1 % (11.5-15.5); WBC 3.4 k/uL (3.8-10.6)
[2023-01-30 16:54] LABS: Glucose,Whole Blood 108 mg/dL (70-110)
[2023-01-30 17:08] LABS: ALT 28 U/L (4-34); AST 78 U/L (14-36); African American GFR (CKD) >90 (>60 ml/min/1.73 sqM); Albumin 4.2 g/dL (3.5-5.0); Alcohol <10 mg/dL; Alkaline Phosphatase 130 U/L (38-126); Anion Gap 10 mmol/L; Blood Urea Nitrogen 13 mg/dL (7-17); Calcium 8.8 mg/dL (8.4-10.2); Carbon Dioxide 25 mmol/L (22-30); Chloride 101 mmol/L (98-107); Glucose 105 mg/dL (74-99); Magnesium 1.4 mg/dL (1.6-2.3); Non-African American GFR(CKD) >90 (>60 ml/min/1.73 sqM); Potassium 3.7 mmol/L (3.5-5.1); Sodium 136 mmol/L (137-145); Total Bilirubin 1.7 mg/dL (0.2-1.3); Total Protein 8.6 g/dL (6.3-8.2)
[2023-01-30 17:15] LABS: Appearance,Urine Clear (Clear); Bilirubin,Urine Negative (Negative); Blood,Urine Negative (Negative); Color,Urine Colorless; Glucose,Urine (UA) Negative (Negative); Ketones,Urine Negative (Negative); Leukocyte Esterase,Urine Negative (Negative); Nitrite,Urine Negative (Negative); PH, Urine 5.5 (5.0-8.0); Protein,Urine Negative (Negative); Specific Gravity,Urine 1.006 (1.001-1.035); Urobilinogen,Urine <2.0 mg/dL (<2.0)
--- NOTE | 2023-01-30 17:28 | CT ---
EXAMINATION TYPE: CT brain wo con DATE OF EXAM: 01/30/2023 COMPARISON: None HISTORY: seizure activity CT DLP: 1100.4 mGycm Automated exposure control for dose reduction was used. Images of the brain obtained with no contrast. Ventricles have normal size. There is no mass effect or midline shift. No sign of intracranial hemorr bozena. There is some hypodensity in the internal capsule bilaterally. Calvarium is intact. Skull base is intact. IMPRESSION: Minimal white matter hypodensity could be some microvascular ischemia. No hemorrhage.
[2023-01-30 17:29] LABS: Amphetamine Screen,Urine Not Detected (NotDetected); Barbiturate Screen,Urine Not Detected (NotDetected); Benzodiazepines Screen,Urine Not Detected (NotDetected); Cocaine Screen,Urine Not Detected (NotDetected); Methadone Screen, Urine Not Detected (NotDetected); Opiate Screen,Urine Not Detected (NotDetected); Oxycodone Screen, Urine Not Detected (NotDetected); Phencyclidine Screen,Urine Not Detected (NotDetected); Tricyclic Antidepressant,Urine Not Detected (NotDetected); Urn Cannabinoid Scrn Not Detected (NotDetected)
[2023-01-30] MEDS ORDERED: MAGNESIUM OXIDE 400 MG TAB PO STA (17:29)
[2023-01-30 17:39] LABS: Platelet Count 55 k/uL (150-450)
[2023-01-30 17:53] LABS: Appearance,Urine Cloudy (Clear); Bacteria,Urine Many /hpf; Bilirubin,Urine Negative (Negative); Blood,Urine Negative (Negative); Color,Urine Yellow; Glucose,Urine (UA) Negative (Negative); Hyaline Casts,Urine 5 /lpf (0-2); Ketones,Urine Negative (Negative); Leukocyte Esterase,Urine Moderate (Negative); Mucus,Urine Many /hpf; Nitrite,Urine Negative (Negative); Protein,Urine Trace (Negative); RBC,Urine 2 /hpf (0-5); Specific Gravity,Urine 1.014 (1.001-1.035); Squamous Epithelial Cell,Urine 1 /hpf (0-4); WBC,Urine 8 /hpf (0-5)
[2023-01-30 17:54] LABS: Calcium Oxalate Crystals,Urine Occasional /hpf
[2023-01-30 19:30] VITALS: PULSE 86; RESP 17; TEMP 98.8
[2023-01-30 19:45] VITALS: BP 137/87
== END 2023-01-30 19:44 | disposition home or self-care (01) ==
LOC: EC 15:16
DX: R56.9 Unspecified convulsions (principal); F17.200 Nicotine dependence, unspecified, uncomplicated
CPT/HCPCS: 36415; 93005; 80053; 83735; 85025; 81003; 81001; 80306; 80320; 70450; 99285; 96374; J1953

== ENCOUNTER 2023-05-23 07:42 | Observation (INO) | payer BC ==
[2023-05-23] MEDS ORDERED: SODIUM CHLORIDE 0.9% 500 ML 500 ML IV ONE (08:03)
[2023-05-23] MEDS ORDERED: SODIUM CHLORIDE 0.9% 1,000 ML IV ONE ×2 (08:03→12:01)
--- NOTE | 2023-05-23 08:18 | ED ---
General Adult HPI - General Chief complaint: Weakness Stated complaint: Weakness Time Seen by Provider: 05/23/23 07:50 Source: patient, EMS, RN notes reviewed, old records reviewed Mode of arrival: EMS Limitations: no limitations - History of Present Illness Initial comments: Is a 53-year-old female presents emergency department coming in stating she was so weak she continued to go to bathroom sometimes. Patient states she's trying to drink fluids but she's not been able to keep her chest and abdomen appetite. Patient states she is an alcoholic and has been trying to quit and she states her last drink was a week ago. Patient states she's fallen twice once hitting her head on the counter but never got worked up. Patient denies any fever chill s per patient denies any areas of pain. Patient denies any nausea or vomiting. Patient denies any diarrhea. Patient denies any dysuria hematuria urinary frequency though she states she often urinates but because she started weak to go to the bathroom - Related Data Home Medications Medication Instructions Recorded Confirmed No Known Home Medications 01/30/23 05/23/23 Allergies Allergy/AdvReac Type Severity Reaction Status Date / Time No Known Allergies Allergy Verified 05/23/23 09:23 Review of Systems ROS Statement: Those systems with pertinent positive or pertinent negative responses have been documented in the HPI. ROS Other: All systems not noted in ROS Statement are negative. 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 Patient is nontoxic and well- hydrated and is in mild distress. ENT: Neck is soft and supple. No significant lymphadenopathy is noted. Oropharynx is clear. Moist mucous membranes. Neck has full range of motion without eliciting any pain. EYES: The sclera were anicteric and conjunctiva were pink and moist. Extraocular movements were intact and pupils were equal round and reactive to light. Eyelids were unremarkable. PULMONARY: Unlabored respirations. Good breath sounds bilaterally. No audible rales rhonchi or wheezing was noted. CARDIOVASCULAR: There is a regular rate and rhythm without any murmurs gallops or rubs. ABDOMEN: Soft and nontender with normal bowel sounds. SKIN: Skin is clear with no lesions or rashes and otherwise unremarkable. NEUROLOGIC: Patient is alert and oriented x3. Cranial nerves II through XII are grossly intact. Motor and sensory are also intact. Normal speech, volume and content. Symmetrical smile. MUSCULOSKELETAL: Normal extremities with adequate strength and full range of motion. LYMPHATICS: No significant lymphadenopathy is noted PSYCHIATRIC: Normal psychiatric evaluation. Limitations: no limitations Course Vital Signs 05/23/23 07:51 Temperature 97.5 F L Pulse Rate 87 Respiratory 18 Rate Blood Pressure 134/85 O2 Sat by Pulse 99 Oximetry Medical Decision Making - Medical Decision Making EKG shows sinus rhythm at 85 bpm ND interval 193 QRS is 99 QT intervals 434 QTC is [address] segment elevation or depression Was pt. sent in by a medical professional or institution ([facility], HORTICULTURE INSTRUCTOR, urgent care, hospital, or retirement...) When possible be specific @ -No Did you speak to anyone other than the patient for history (EMS, parent, family, police, friend...)? What history was obtained from this source @ -No Did you review nursing and triage notes (agree or disagree)? Why? @ -I reviewed and agree with nursing and triage notes Were old charts reviewed (outside hosp., previous admission, EMS record, old EKG, old radiological studies, urgent care reports/EKG's, retirement records)? Report findings @ -I reviewed prior charts and lab work on this patient Differential Diagnosis (chest pain, altered mental status, abdominal pain women, abdominal pain men, vaginal bleeding, weakness, fever, dyspnea, syncope, headache, dizziness, GI bleed, back pain, seizure, CVA, palpatations, mental health, musculoskeletal)? @ -Differential Weakness: Hypoglycemia, shock, sepsis, hyponatremia, anemia, infection, TX, ETOH, adverse medicine reaction, overdose, stroke, this is not meant to be an all-inclusive list. EKG interpreted by me (3pts min.). @ -As above X-rays interpreted by me (1pt min.). @ -Chest x-ray showed no acute abnormality CT interpreted by me (1pt min.). @ -CT of the brain shows no acute abnormality U/S interpreted by me (1pt. min.). @ -None done What testing was considered but not performed or refused? (CT, X-rays, U/S, labs)? Why? @ -None What meds were considered but not given or refused? Why? @ -None Did you discuss the management of the patient with other professionals (professionals i.e. DrNish, PA, HORTICULTURE INSTRUCTOR, lab, RT, psych nurse, social sciences department chair, water chemist, teacher, affirmative action officer, case monitor)? Give summary @ -I spoke with Dr. Bradshaw he agreed to admit the patient Was smoking cessation discussed for >3mins.? @ -No Was critical care preformed (if so, how long)? @ -No Were there social determinants of health that impacted care today? How? (Homele ssness, low income, unemployed, alcoholism, drug addiction, transportation, low edu. Level, literacy, decrease access to med. care, usp, rehab)? @ -No Was there de-escalation of care discussed even if they declined (Discuss DNR or withdrawal of care, Hospice)? DNR status @ -No What co-morbidities impacted this encounter? (DM, HTN, Smoking, COPD, CAD, Cancer, CVA, ARF, Chemo, Hep., AIDS, mental health diagnosis, sleep apnea, morbid obesity)? @ -None Was patient admitted / discharged? Hospital course, mention meds given and route, prescriptions, significant lab abnormalities, going to OR and other pertinent info. @ -Patient was given magnesium for the low magnesium patient was given a fluid bolus which helped for hyponatremia and patient was given calcium and potassium as well as emergency department. Patient was given 2 g of Rocephin for the urinary tract infection. I spoke with physician they agreed to admit the patient admitted the patient I wrote admitting orders Undiagnosed new problem with uncertain prognosis? @ -No Drug Therapy requiring intensive monitoring for toxicity (Heparin, Nitro, Insulin, Cardizem)? @ -No Were any procedures done? @ -No Diagnosis/symptom? @ -Urinary tract infection Acute, or Chronic, or Acute on Chronic? @ -Acute Uncomplicated (without systemic symptoms) or Complicated (systemic symptoms)? @ -Complicated Side effects of treatment? @ -No Exacerbation, Progression, or Severe Exacerbation? @ -No Poses a threat to life or bodily function? How? (Chest pain, [place], [place], pneumonia, PE, COPD, DKA, ARF, appy, cholecystitis, CVA, Diverticulitis, Homicidal, Suicidal, threat to staff... and all critical care pts) @ -Yes this could lead to sepsis and end organ dysfunction Diagnosis/symptom? @ -Hypokalemia hypomagnesemia hypocalcemia Acute, or Chronic, or Acute on Chronic? @ -Acute Uncomplicated (without systemic symptoms) or Complicated (systemic symptoms)? @ -Complicated Side effects of treatment? @ -none Exacerbation, Progression, or Severe Exacerbation] @ -no Poses a threat to life or bodily function? @ -no - Lab Data Result diagrams: 05/23/23 08:04 05/23/23 09:37 Lab Results 05/23/23 05/23/23 05/23/23 Range/Units 08:04 08:04 08:04 WBC 4.0 (3.8-10.6) k/uL RBC 3.50 L (3.80-5.40) m/uL Hgb 11.0 L (11.4-16.0) gm/dL Hct 33.4 L (34.0-46.0) % MCV 95.5 (80.0-100.0) fL MCH 31.5 (25.0-35.0) pg MCHC 33.0 (31.0-37.0) g/dL RDW 17.4 H (11.5-15.5) % Plt Count 53 L (150-450) k/uL MPV 13.7 Neutrophils % (Manual) 68 % Band Neuts % (Manual) 1 % Lymphocytes % (Manual) 23 % Monocytes % (Manual) 7 % Eosinophils % (Manual) 1 % Neutrophils # (Manual) 2.70 (1.3-7.7) k/uL Lymphocytes # (Manual) 0.92 L (1.0-4.8) k/uL Monocytes # (Manual) 0.28 (0-1.0) k/uL Eosinophils # (Manual) 0.04 (0-0.7) k/uL Nucleated RBCs 0 (0-0) /100 WBC Manual Slide Review Performed Large Platelets Present Anisocytosis Slight Macrocytosis Slight Target Cells Present PT 14.3 H (9.0-12.0) sec INR 1.4 H (<1.2) APTT 27.4 (22.0-30.0) sec Sodium (137-145) mmol/L Potassium (3.5-5.1) mmol/L Chloride (98-107) mmol/L Carbon Dioxide (22-30) mmol/L Anion Gap mmol/L BUN (7-17) mg/dL Creatinine (0.52-1.04) mg/dL Est GFR (CKD-EPI)AfAm (>60 ml/min/1.73 sqM) Est GFR (CKD-EPI)NonAf (>60 ml/min/1.73 sqM) Glucose (74-99) mg/dL Calcium (8.4-10.2) mg/dL Magnesium (1.6-2.3) mg/dL Total Bilirubin (0.2-1.3) mg/dL AST (14-36) U/L ALT (4-34) U/L Alkaline Phosphatase (38-126) U/L Total Protein (6.3-8.2) g/dL Albumin (3.5-5.0) g/dL Urine Color Yellow Urine Appearance Cloudy H (Clear) Urine pH 8.0 (5.0-8.0) Ur Specific Todd 1.010 (1.001-1.035) Urine Protein Negative (Negative) Urine Glucose (UA) Negative (Negative) Urine Ketones Negative (Negative) Urine Blood Negative (Negative) Urine Nitrite Negative (Negative) Urine Bilirubin 1+ H (Negative) Urine Urobilinogen 12.0 (<2.0) mg/dL Ur Leukocyte Esterase Moderate H (Negative) Urine RBC 1 (0-5) /hpf Urine WBC 15 H (0-5) /hpf Ur Squamous Epith Cells 2 (0-4) /hpf Urine Bacteria Many H (None) /hpf Urine Mucus Rare H (None) /hpf Serum Alcohol mg/dL 05/23/23 Range/Units 09:37 WBC (3.8-10.6) k/uL RBC (3.80-5.40) m/uL Hgb (11.4-16.0) gm/dL Hct (34.0-46.0) % MCV (80.0-100.0) fL MCH (25.0-35.0) pg MCHC (31.0-37.0) g/dL RDW (11.5-15.5) % Plt Count (150-450) k/uL MPV Neutrophils % (Manual) % Band Neuts % (Manual) % Lymphocytes % (Manual) % Monocytes % (Manual) % Eosinophils % (Manual) % Neutrophils # (Manual) (1.3-7.7) k/uL Lymphocytes # (Manual) (1.0-4.8) k/uL Monocytes # (Manual) (0-1.0) k/uL Eosinophils # (Manual) (0-0.7) k/uL Nucleated RBCs (0-0) /100 WBC Manual Slide Review Large Platelets Anisocytosis Macrocytosis Target Cells PT (9.0-12.0) sec INR (<1.2) APTT (22.0-30.0) sec Sodium 132 L (137-145) mmol/L Potassium 3.4 L (3.5-5.1) mmol/L Chloride 101 (98-107) mmol/L Carbon Dioxide 20 L (22-30) mmol/L Anion Gap 11 mmol/L BUN 5 L (7-17) mg/dL Creatinine 0.26 L (0.52-1.04) mg/dL Est GFR (CKD-EPI)AfAm >90 (>60 ml/min/1.73 sqM) Est GFR (CKD-EPI)NonAf >90 (>60 ml/min/1.73 sqM) Glucose 96 (74-99) mg/dL Calcium 7.5 L (8.4-10.2) mg/dL Magnesium 1.1 L (1.6-2.3) mg/dL Total Bilirubin 4.1 H (0.2-1.3) mg/dL AST 150 H (14-36) U/L ALT 37 H (4-34) U/L Alkaline Phosphatase 119 (38-126) U/L Total Protein 8.0 (6.3-8.2) g/dL Albumin 3.6 (3.5-5.0) g/dL Urine Color Urine Appearance (Clear) Urine pH (5.0-8.0) Ur Specific Todd (1.001-1.035) Urine Protein (Negative) Urine Glucose (UA) (Negative) Urine Ketones (Negative) Urine Blood (Negative) Urine Nitrite (Negative) Urine Bilirubin (Negative) Urine Urobilinogen (<2.0) mg/dL Ur Leukocyte Esterase (Negative) Urine RBC (0-5) /hpf Urine WBC (0-5) /hpf Ur Squamous Epith Cells (0-4) /hpf Urine Bacteria (None) /hpf Urine Mucus (None) /hpf Serum Alcohol <10 mg/dL Disposition Clinical Impression: Hyponatremia, Hypomagnesemia, Hypokalemia, Hypocalcemia, Urinary tract infection Disposition: ADMITTED IP TO THIS HOSP Referrals: None,Stated [Primary Care Provider] - 1-2 days Time of Disposition: 12:00
--- NOTE | 2023-05-23 08:20 | CT ---
EXAMINATION TYPE: CT brain wo con CT DLP: 1058.4 mGycm, Automated exposure control for dose reduction was used. DATE OF EXAM: 05/23/2023 8:15 AM COMPARISON: 01/30/2023. CLINICAL INDICATION:Female, 53 years old with history of Fall, Weakness TECHNIQUE: Brain: Axial CT images of the brain were obtained with coronal and sagittal reformats created and rev iewed. Contrast used: None. Oral contrast used: None. FINDINGS: Brain: Extra-axial spaces: No abnormal extra-axial fluid collections. Ventricular system: Dilatation in proportion to cerebral atrophy. Cerebral parenchyma: Cerebral atrophy. No acute intraparenchymal hemorrhage or mass effect. The durbin -white junction is well differentiated. Scattered hypoattenuating areas are seen within the white mat ter. Cerebellum: Unremarkable. Mass effect: No evidence of midline shift. Intracranial vasculature: unremarkable Soft tissues: Normal. Calvarium/osseous structures: No depressed skull fracture. Paranasal sinuses and mastoid air cells: Mild scattered paranasal sinus disease. Visualized orbits: Orbital contents are intact. IMPRESSION: 1. No acute intracranial process. 2. Nonspecific white matter changes, likely secondary to chronic small vessel ischemic disease.
--- NOTE | 2023-05-23 08:26 | XR ---
EXAMINATION TYPE: XR chest 2V DATE OF EXAM: 05/23/2023 8:20 AM COMPARISON: None TECHNIQUE: XR chest 2V Frontal and lateral views of the chest. CLINICAL INDICATION:Female, 53 years old with history of Difficulty breathing ; FINDINGS: Lungs/Pleura: There is no evidence of pleural effusion, focal consolidation, or pneumothorax. Heart/mediastinum: Cardiomediastinal silhouette is unremarkable. Atherosclerotic calcifications are seen in the aorta. Musculoskeletal: No acute osseous pathology. Mild degenerative changes of the thoracic spine. IMPRESSION: No acute cardiopulmonary disease/process.
[2023-05-23 08:34] LABS: Anisocytosis Slight; HCT 33.4 % (34.0-46.0); MCH 31.5 pg (25.0-35.0); MCV 95.5 fL (80.0-100.0); Macrocytosis Slight; Mean Platelet Volume 13.7; RDW 17.4 % (11.5-15.5)
[2023-05-23 08:59] LABS: INR 1.4 (<1.2); Partial Thromboplastin Time 27.4 sec (22.0-30.0); Prothrombin Time 14.3 sec (9.0-12.0)
[2023-05-23 09:03] LABS: Band Neutrophils % 1 %; Eosinophils # (M) 0.04 k/uL (0-0.7); Lymphocytes # (M) 0.92 k/uL (1.0-4.8); Monocytes # (M) 0.28 k/uL (0-1.0); Neutrophils % (M) 68 %; Nucleated Red Blood Cells 0 /100 WBC (0-0); Total Cells Counted 100
[2023-05-23 09:05] LABS: Large Platelets Present; Platelet Count 53 k/uL (150-450); Target Cells Present
[2023-05-23 09:16] LABS: Appearance,Urine Cloudy (Clear); Bacteria,Urine Many /hpf; Bilirubin,Urine 1+ (Negative); Blood,Urine Negative (Negative); Color,Urine Yellow; Glucose,Urine (UA) Negative (Negative); Ketones,Urine Negative (Negative); Leukocyte Esterase,Urine Moderate (Negative); Mucus,Urine Rare /hpf; Nitrite,Urine Negative (Negative); Protein,Urine Negative (Negative); RBC,Urine 1 /hpf (0-5); Squamous Epithelial Cell,Urine 2 /hpf (0-4); WBC,Urine 15 /hpf (0-5)
[2023-05-23] MEDS ORDERED: cefTRIAXone IN SWFI 1,000 MG/10 ML SYRINGE IVP STA (09:35)
[2023-05-23 09:59] LABS: ALT 37 U/L (4-34); African American GFR (CKD) >90 (>60 ml/min/1.73 sqM); Albumin 3.6 g/dL (3.5-5.0); Alcohol <10 mg/dL; Anion Gap 11 mmol/L; Blood Urea Nitrogen 5 mg/dL (7-17); Calcium 7.5 mg/dL (8.4-10.2); Carbon Dioxide 20 mmol/L (22-30); Chloride 101 mmol/L (98-107); Glucose 96 mg/dL (74-99); Non-African American GFR(CKD) >90 (>60 ml/min/1.73 sqM); Sodium 132 mmol/L (137-145); Total Bilirubin 4.1 mg/dL (0.2-1.3)
[2023-05-23 10:09] LABS: AST 150 U/L (14-36); Alkaline Phosphatase 119 U/L (38-126); Magnesium 1.1 mg/dL (1.6-2.3); Potassium 3.4 mmol/L (3.5-5.1)
[2023-05-23] MEDS ORDERED: POTASSIUM CHLORIDE ER 20 MEQ TAB.ER PO STA (11:47)
[2023-05-23] MEDS ORDERED: SODIUM CHLORIDE 0.9% IVPB ONE (12:15)
[2023-05-23] MEDS ORDERED: CALCIUM GLUCONATE IVPB ONE (12:15)
[2023-05-23] MEDS: POTASSIUM CHLORIDE 10 MEQ in WATER FOR INJECTION 1 100ML.BAG IVPB SCH ×2 (12:20→13:46)
[2023-05-23] MEDS: MAGNESIUM SULFATE-D5W PMX 1 GM in DEXTROSE/WATER 1 100ML.BAG IVPB SCH ×6 (12:24→22:28)
[2023-05-23] MEDS ORDERED: LORazepam 2 MG/ML INJ IV PRN ×3 (16:04)
[2023-05-23] MEDS ORDERED: THIAMINE 100 MG/ML 2 ML VIAL IM STA (16:04)
--- NOTE | 2023-05-23 18:12 | P.HPIM ---
History of Present Illness H&P Date: 05/23/23 Patient is a 53-year-old female with PMH of chronic alcohol abuse that presents the ED for generalized weakness and inability to take care of her ADL and IADLs. Patient reports progressive weakness that has been ongoing for the past 2 weeks. States that she needs to hold onto the jimenez in order to ambulate. It has made it difficult for her to make it to the washroom. At times, she has soiled herself. She also reports a poor appetite and decreased oral intake because she is unable to make it to the front door or cook herself something to eat. She has not had a drink since Saturday. 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 She denies any slurred speech, confusion, numbness/weak ness/tingling of the extremities. These symptoms prompted her to call EMS. In the ED, her vital signs were stable. CBC showed hemoglobin of 11 with MCV of 95.5 and platelet count of 53. Coagulation panel showed INR 1.4. CMP shows sodium 132, potassium of 3.4, bicarb of 20, B1 of 5, creatinine is 0.26, calcium is 7.5, magnesium of 1.1, total bilirubin of 4.1, AST of 150, ALT of 37. Ammonia was 27. Urinalysis showed moderate leukocyte esterase. Serum alcohol less than 10. CT brain showed chronic small vessel ischemic disease. EKG showed normal sinus rhythm. Chest x-ray was negative for acute pathology. Pertinent positives and negatives as discussed in HPI, a complete review of syst ems was performed and all other systems are negative. General: non toxic, no distress, appears at stated age Derm: warm, dry Head: atraumatic, normocephalic, symmetric Eyes: EOMI, no lid lag, anicteric sclera Mouth: no lip lesion, mucus membranes moist Cardiovascular: S1S2 reg, systolic murmur, positive posterior tibial pulse bilateral, Lungs: CTA bilateral, no rhonchi, no rales , no accessory muscle use Abdominal: soft, nontender to palpation, no guarding, no appreciable organomegaly Ext: no gross muscle atrophy, no edema, no contractures Neuro: no focal neuro deficits Psych: Alert, oriented, appropriate affect Generalized weakness Failure to thrive Urinary tract infection Insomnia Hypomagnesemia Hypokalemia Hyponatremia likely related to dehydration Obstructive transaminitis likely related to chronic alcohol abuse Thrombocytopenia likely related to chronic alcohol abuse History of alcohol abuse Based on my assessment of this patient, this patient meets a high complexity level of care. Patient has an acute diagnosis of generalized weakness, failure to thrive and difficulties taking care of her ADL and IADLs. That poses a threat to life or bodily function. Her magnesium and potassium will be replaced. She'll be started on Rocephin 1 g IV daily for treatment of UTI. Urine culture will be collected. Start normal saline at 50 mL per hour. Ambien as needed for insomnia. Liver ultrasound ordered for transaminitis. CIWA protocol with Ativan as needed for alcohol withdrawal. PT and OT will be consulted to work with this patient. Fall precautions. SCDs for DVT prophylaxis. Patient names her eldest brother Bill decision-maker if she can't make decisions for herself. Full code. I have reviewed the following agricultural consultant notes: I have reviewed the results of the following tests: CBC, CMP, coagulation panel, magnesium level, ammonia, urinalysis, serum alcohol, CT brain, chest x-ray. I have ordered the following tests: Liver ultrasound. CMP ordered for tomorrow morning. B12 and folic acid. I have discussed the care of this patient with the following independent historian: I have independently interpreted the following test below: EKG as above. I have discussed the management of this patient with the following physician: Case was discussed extensively with the ED physician. Past Medical History Past Medical History: Liver Disease, Seizure Disorder Additional Past Medical History / Comment(s): liver cirrohosis r/t etoh in past, one seizure in january 2023 History of Any Multi-Drug Resistant Organisms: None Reported Past Surgical History: Cholecystectomy, Hernia Repair Additional Past Surgical History / Comment(s): breast aug., gastric bypass Past Anesthesia/Blood Transfusion Reactions: No Reported Reaction Past Psychological History: No Psychological Hx Reported Smoking Status: Current every day smoker Past Alcohol Use History: Daily, Rare Past Drug Use History: None Reported Medications and Allergies Home Medications Medication Instructions Recorded Confirmed Type No Known Home Medications 01/30/23 05/23/23 History Allergies Allergy/AdvReac Type Severity Reaction Status Date / Time No Known Allergies Allergy Verified 05/23/23 09:23 Physical Exam Vitals: Vital Signs Temp Pulse Pulse Resp BP BP Pulse Ox 05/23/23 16:20 98.9 F 88 18 129/81 99 05/23/23 15:56 97.5 F L 88 16 134/87 96 05/23/23 12:38 84 17 127/88 98 05/23/23 07:51 97.5 F L 87 18 134/85 99 Intake and Output 05/23/23 05/23/23 05/23/23 06:59 14:59 22:59 Other: Weight 63.503 kg 63.503 kg Results CBC & Chem 7: 05/23/23 08:04 05/23/23 09:37 Labs: Abnormal Lab Results - Last 24 Hours (Table) 05/23/23 05/23/23 05/23/23 Range/Units 08:04 08:04 08:04 RBC 3.50 L (3.80-5.40) m/uL Hgb 11.0 L (11.4-16.0) gm/dL Hct 33.4 L (34.0-46.0) % RDW 17.4 H (11.5-15.5) % Plt Count 53 L (150-450) k/uL Lymphocytes # (Manual) 0.92 L (1.0-4.8) k/uL PT 14.3 H (9.0-12.0) sec INR 1.4 H (<1.2) Sodium (137-145) mmol/L Potassium (3.5-5.1) mmol/L Carbon Dioxide (22-30) mmol/L BUN (7-17) mg/dL Creatinine (0.52-1.04) mg/dL Calcium (8.4-10.2) mg/dL Magnesium (1.6-2.3) mg/dL Total Bilirubin (0.2-1.3) mg/dL AST (14-36) U/L ALT (4-34) U/L Urine Appearance Cloudy H (Clear) Urine Bilirubin 1+ H (Negative) Ur Leukocyte Esterase Moderate H (Negative) Urine WBC 15 H (0-5) /hpf Urine Bacteria Many H (None) /hpf Urine Mucus Rare H (None) /hpf 05/23/23 Range/Units 09:37 RBC (3.80-5.40) m/uL Hgb (11.4-16.0) gm/dL Hct (34.0-46.0) % RDW (11.5-15.5) % Plt Count (150-450) k/uL Lymphocytes # (Manual) (1.0-4.8) k/uL PT (9.0-12.0) sec INR (<1.2) Sodium 132 L (137-145) mmol/L Potassium 3.4 L (3.5-5.1) mmol/L Carbon Dioxide 20 L (22-30) mmol/L BUN 5 L (7-17) mg/dL Creatinine 0.26 L (0.52-1.04) mg/dL Calcium 7.5 L (8.4-10.2) mg/dL Magnesium 1.1 L (1.6-2.3) mg/dL Total Bilirubin 4.1 H (0.2-1.3) mg/dL AST 150 H (14-36) U/L ALT 37 H (4-34) U/L Urine Appearance (Clear) Urine Bilirubin (Negative) Ur Leukocyte Esterase (Negative) Urine WBC (0-5) /hpf Urine Bacteria (None) /hpf Urine Mucus (None) /hpf Thrombosis Risk Factor Assmnt - Choose All That Apply Any of the Below Risk Factors Present?: Yes Each Factor Represents 1 point: Age 41-60 years Other Risk Factors: No Thrombosis Risk Factor Assessment Total Risk Factor Score: 1 Thrombosis Risk Factor Assessment Level: Low Risk
[2023-05-23] MEDS: ZOLPIDEM 5 MG TAB PO PRN (21:22)
--- NOTE | 2023-05-24 08:09 | US ---
EXAMINATION TYPE: US liver DATE OF EXAM: 05/24/2023 Exam done portable COMPARISON: US 2020 CLINICAL INDICATION: Female, 53 years old with history of add gallbladder for obstructive LFTS; TECHNIQUE: Multiple sonographic images of the right upper quadrant are obtained. FINDINGS: EXAM MEASUREMENTS: Liver Length: 16.4 cm CBD: 0.5 cm Right Kidney: 11.3 x 4.2 x 5.2 cm Pancreas: obscured by overlying midline bowel gas Liver: limited visualization, scanned intercostally, attenuating, heterogeneous, increased echogenic ity Gallbladder: surgically absent Evidence for sonographic Shelton's sign: no CBD: visualized portions wnl, mostly obscured by overlying bowel gas Right Kidney: wnl Small amount of fluid seen RUQ IMPRESSION: 1. Limited evaluation. 2. Hepatic steatosis. 3. Trace ascites.
[2023-05-24] MEDS: MULTIVITAMINS, THERA 1 EACH TAB PO SCH (08:27)
[2023-05-24] MEDS: FOLIC ACID 1 MG TAB PO SCH (08:27)
[2023-05-24] MEDS: THIAMINE 100 MG TAB PO SCH (08:27)
[2023-05-24 10:13] LABS: ALT 26 U/L (8-44); AST 94 U/L (13-35); Albumin 2.8 d/dL (3.8-4.9); Alkaline Phosphatase 93 U/L (41-126); BUN/Creat Ratio <8.75 Ratio (12.00-20.00); Blood Urea Nitrogen <3.5 mg/dL (9.0-27.0); Calcium 7.9 mg/dL (8.7-10.3); Carbon Dioxide 21.4 mmol/L (21.6-31.8); Chloride 102 mmol/L (96-109); Globulin 3.5 d/dL (1.6-3.3); Glucose 89 mg/dL (70-110); Sodium 135 mmol/L (135-145); Total Bilirubin 2.1 mg/dL (0.3-1.2); Total Protein 6.3 d/dL (6.2-8.2)
[2023-05-24 10:33] LABS: Vitamin B12 >1800.0 pg/mL (200.0-944.0)
--- NOTE | 2023-05-24 12:59 | P.PN ---
Subjective Progress Note Date: 05/24/23 Patient is a 53-year-old female with PMH of chronic alcohol abuse that presents the ED for generalized weakness and inability to take care of her ADL and IADLs. Patient reports progressive weakness that has been ongoing for the past 2 weeks. States that she needs to hold onto the jimenez in order to ambulate. It has made it difficult for her to make it to the washroom. At times, she has soiled herself. She also reports a poor appetite and decreased oral intake because she is unable to make it to the front door or cook herself something to eat. She has not had a drink since Saturday. 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 She denies any slurred speech, confusion, numbness/weakness/t ingling of the extremities. These symptoms prompted her to call EMS. In the ED, her vital signs were stable. CBC showed hemoglobin of 11 with MCV of 95.5 and platelet count of 53. Coagulation panel showed INR 1.4. CMP shows sodium 132, potassium of 3.4, bicarb of 20, B1 of 5, creatinine is 0.26, calcium is 7.5, magnesium of 1.1, total bilirubin of 4.1, AST of 150, ALT of 37. Ammonia was 27. Urinalysis showed moderate leukocyte esterase. Serum alcohol less than 10. CT brain showed chronic small vessel ischemic disease. EKG showed normal sinus rhythm. Chest x-ray was negative for acute pathology. 05/24 Patient was seen and examined. No acute events overnight. Patient states she was able to work with PT and OT today with the aid of a walker. She is generally feeling well. States that she ate ice cream. BMP shows K 3, bicarb 21.4, BUN < 3.5, Cr 0.4, Ca 7.9, T. Bili 2.1, AST 94, albumin 2.8, Vit B12 > 1800. Liver US shows hepatic steatosis with mild ascites. General: non toxic, no distress, appears at stated age Derm: warm, dry Head: atraumatic, normocephalic, symmetric Eyes: EOMI, no lid lag, anicteric sclera Cardiovascular: S1S2 reg, systolic murmur Lungs: CTA bilateral, no rhonchi, no rales , no accessory muscle use Abdominal: soft, nontender to palpation, no guarding, no appreciable organomegaly Ext: no gross muscle atrophy, no edema, no contractures Neuro: no focal neuro deficits Psych: Alert, oriented, appropriate affect Generalized weakness Failure to thrive Urinary tract infection Insomnia Hypomagnesemia Hypokalemia Hyponatremia likely related to dehydration Obstructive transaminitis likely related to chronic alcohol abuse Thrombocytopenia likely related to chronic alcohol abuse History of alcohol abuse Based on my assessment of this patient, this patient meets a moderate complexity of care. Patient has an acute diagnosis of generalized weakness, failure to thrive and difficulties taking care of her ADL and IADLs. That poses a threat to life or bodily function. Her magnesium and potassium will be replaced. She'll be started on Rocephin 1 g IV daily for treatment of UTI. Urine culture will be collected. DC IVF and encourage hydration by mouth. Ambien as needed for insomnia. Liver ultrasound as above. CIWA protocol with Ativan as needed for alcohol withdrawal. Replace potassium. PT and OT will be consulted to work with this patient. Plans for SNF. Fall precautions. SCDs for DVT prophylaxis. Patient names her eldest brother Bill decision-maker if she can't make decisions for herself. Full code. I have reviewed the following wireless consultant notes: I have reviewed the results of the following tests: CMP, Liver US, B12. I have ordered the following tests: Folic acid pending. BMP ordered for tomorrow morning. I have discussed the care of this patient with the following independent historian: I have independently interpreted the following test below: I have discussed the management of this patient with the following physician: Objective - Vital Signs Vital signs: Vital Signs Temp 98.8 F 05/24/23 07:45 Pulse 70 05/24/23 07:45 Resp 15 05/24/23 07:45 BP 110/73 05/24/23 07:45 Pulse Ox 99 05/24/23 07:45 FiO2 Intake & Output 05/23/23 05/24/23 05/24/23 18:59 06:59 18:59 Intake Total 0 Balance 0 Weight 63.503 kg Intake: Oral 0 Other: Voiding Method Bedside Commode Bedside Commode Incontinent Incontinent # Voids 1 5 1 - Labs CBC & Chem 7: 05/23/23 08:04 05/24/23 06:00 Labs: Abnormal Lab Results - Last 24 Hours (Table) 05/24/23 Range/Units 06:00 Potassium 3.0 L (3.5-5.5) mmol/L Carbon Dioxide 21.4 L (21.6-31.8) mmol/L BUN <3.5 L (9.0-27.0) mg/dL Creatinine 0.4 L (0.6-1.5) mg/dL BUN/Creatinine Ratio <8.75 L (12.00-20.00) Ratio Calcium 7.9 L (8.7-10.3) mg/dL Total Bilirubin 2.1 H (0.3-1.2) mg/dL AST 94 H (13-35) U/L Albumin 2.8 L (3.8-4.9) d/dL Globulin 3.5 H (1.6-3.3) d/dL Albumin/Globulin Ratio 0.80 L (1.60-3.17) Ratio Vitamin B12 >1800.0 H (200.0-944.0) pg/mL
[2023-05-24] MEDS: POTASSIUM CHLORIDE 10 MEQ in WATER FOR INJECTION 1 100ML.BAG IVPB SCH ×4 (13:10→18:18)
[2023-05-24] MEDS ORDERED: ACETAMINOPHEN TAB 325 MG TAB PO PRN (13:20)
[2023-05-24 19:38] VITALS: RESP 16
[2023-05-24] MEDS: ZOLPIDEM 5 MG TAB PO PRN (21:02)
[2023-05-25] MEDS: MULTIVITAMINS, THERA 1 EACH TAB PO SCH (09:10)
[2023-05-25] MEDS: THIAMINE 100 MG TAB PO SCH (09:10)
[2023-05-25] MEDS: FOLIC ACID 1 MG TAB PO SCH (09:10)
[2023-05-25 09:28] LABS: African American GFR (CKD) >90 (>60 ml/min/1.73 sqM); Anion Gap 8 mmol/L; Blood Urea Nitrogen 3 mg/dL (7-17); Calcium 7.8 mg/dL (8.4-10.2); Carbon Dioxide 20 mmol/L (22-30); Chloride 105 mmol/L (98-107); Glucose 86 mg/dL (74-99); Non-African American GFR(CKD) >90 (>60 ml/min/1.73 sqM); Potassium 3.5 mmol/L (3.5-5.1); Sodium 133 mmol/L (137-145)
[2023-05-25 09:34] LABS: Anisocytosis Slight; HCT 31.5 % (34.0-46.0); HGB 9.9 gm/dL (11.4-16.0); MCH 31.1 pg (25.0-35.0); MCHC 31.4 g/dL (31.0-37.0); Macrocytosis Slight; Mean Platelet Volume 11.4; RBC 3.18 m/uL (3.80-5.40); RDW 17.9 % (11.5-15.5)
[2023-05-25 09:35] LABS: Platelet Count 47 k/uL (150-450)
--- NOTE | 2023-05-25 11:22 | P.DS ---
Providers Date of admission: 05/23/23 12:02 Expected date of discharge: 05/25/23 Attending physician: Arnulfo Bradshaw MD Primary care physician: Stated None Hospital Course: Patient is a 53-year-old female with PMH of chronic alcohol abuse that presents the ED for generalized weakness and inability to take care of her ADL and IADLs. Patient reports progressive weakness that has been ongoing for the past 2 weeks. States that she needs to hold onto the jimenez in order to ambulate. It has made it difficult for her to make it to the washroom. At times, she has soiled herself. She also reports a poor appetite and decreased oral intake because she is unable to make it to the front door or cook herself something to eat. She has not had a drink since Saturday. 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 She denies any slurred speech, confusion, numbness/weakness/tingling of the extremities. These symptoms prompted her to call EMS. In the ED, her vital signs were stable. CBC showed hemoglobin of 11 with MCV of 95.5 and platelet count of 53. Coagulation panel showed INR 1.4. CMP shows sodium 132, potassium of 3.4, bicarb of 20, B1 of 5, creatinine is 0.26, calcium is 7.5, magnesium of 1.1, total bilirubin of 4.1, AST of 150, ALT of 37. Ammonia was 27. Urinalysis showed moderate leukocyte esterase. Serum alcohol less than 10. CT brain showed chronic small vessel ischemic disease. EKG showed normal sinus rhythm. Chest x-ray was negative for acute pathology. 05/24 Patient was seen and examined. No acute events overnight. Patient states she was able to work with PT and OT today with the aid of a walker. She is generally feeling well. States that she ate ice cream. BMP shows K 3, bicarb 21.4, BUN < 3.5, Cr 0.4, Ca 7.9, T. Bili 2.1, AST 94, albumin 2.8, Vit B12 > 1800. Liver US shows hepatic steatosis with mild ascites. 05/25 Patient was seen and exmained. Able to walk > 200 feet with PT yesterday. Patient reports improvement in her appetite. She is able to ambulate to the washroom without any difficulties. Patient states she felt comfortable going home. She has completed 3 days of Rocephin. Her potassium and magnesium is within normal limits after replacement. She is advised to refrain from drinking alcohol. Patient verbalized understanding of the plan. Pertinent studies as above. General: non toxic, no distress, appears at stated age Derm: warm, dry Head: atraumatic, normocephalic, symmetric Eyes: EOMI, no lid lag, anicteric sclera Cardiovascular: S1S2 reg, systolic murmur Lungs: CTA bilateral, no rhonchi, no rales , no accessory muscle use Abdominal: soft, nontender to palpation, no guarding, no appreciable organomegaly Ext: no gross muscle atrophy, no edema, no contractures Neuro: no focal neuro deficits Psych: Alert, oriented, appropriate affect Discharge Diagnosis: Generalized weakness Failure to thrive Urinary tract infection Insomnia Hyponatremia likely related to dehydration Obstructive transaminitis likely related to chronic alcohol abuse Pancytopenia likely related to chronic alcohol abuse History of alcohol abuse Resolved: HypoK, HypoMg This complex discharge took 35 minutes to complete. Patient Condition at Discharge: Stable Plan - Discharge Summary Discharge Rx Participant: No New Discharge Prescriptions: New Multivitamins, Thera [Multivitamin (formulary)] 1 each PO DAILY tab Folic Acid 1 mg PO DAILY tab Thiamine [Vitamin B-1] 100 mg PO DAILY tab Discharge Medication List Folic Acid 1 mg PO DAILY tab 05/25/23 [Rx] Multivitamins, Thera [Multivitamin (formulary)] 1 each PO DAILY tab 05/25/23 [Rx] Thiamine [Vitamin B-1] 100 mg PO DAILY tab 05/25/23 [Rx] Follow up Appointment(s)/Referral(s): None,Stated [Primary Care Provider] - 1-2 days Discharge/Stand Alone Forms: AA Meetings [facility], Who Do I Call?, Community Resources, Outpatient Counseling, Inp Substance Abuse Facilities, Area PCPs Discharge Disposition: HOME SELF-CARE
[2023-05-25 12:49] VITALS: BP 106/72; PULSE 81; TEMP 98.7
== END 2023-05-25 14:23 | disposition home or self-care (01) ==
LOC: EC 07:42 → 5NMEDONC 12:02 → INTOOBSV 12:02 → 5NMEDONC 15:49
PROVIDERS: ADMIT Family Medicine; ATTEND Family Medicine
DX: N39.0 Urinary tract infection, site not specified (principal); E86.0 Dehydration; D61.818 Other pancytopenia; R53.1 Weakness; K70.31 Alcoholic cirrhosis of liver with ascites; E87.6 Hypokalemia; E83.42 Hypomagnesemia; E83.51 Hypocalcemia; E87.1 Hypo-osmolality and hyponatremia; F10.20 Alcohol dependence, uncomplicated; D69.59 Other secondary thrombocytopenia; R62.7 Adult failure to thrive; G40.909 Epilepsy, unspecified, not intractable, without status epilepticus; K76.0 Fatty (change of) liver, not elsewhere classified; G47.00 Insomnia, unspecified; R63.8 Other symptoms and signs concerning food and fluid intake; R63.0 Anorexia; F17.200 Nicotine dependence, unspecified, uncomplicated; Z90.49 Acquired absence of other specified parts of digestive tract; Z91.81 History of falling; Z98.84 Bariatric surgery status; Z86.69 Personal history of other diseases of the nervous system and sense organs; Z98.890 Other specified postprocedural states; Z71.41 Alcohol abuse counseling and surveillance of alcoholic
CPT/HCPCS: 96366 ×3; 96367; 96372; 96376; 96368; 96361; 96365; 99285; 36415; 93005; 97162; 80053 ×2; 80048; 82607; 82140; 82746; 83735 ×2; 84132; 85025; 85027; 85610; 85730; 81001; 87040; 80320; 87086; 71046; 76705; 70450; G0378 ×3; J3411; J0696 ×3; J3475; J3480 ×2; J0612; 96375